=== PATIENT | male | born 1950 | race Caucasian/White ===

== ENCOUNTER 2020-07-09 10:46 | Day surgery (SDC) | payer OTHER, MEDICARE ==
[~2020-07-09] VITALS: Ht 182.9 cm; Wt 137.2 kg
[~2020-07-09 10:46] MED LIST: CARTIA XT120 MG PO; ELIQUIS5 MG PO; VALS80 PO
== END 2020-07-09 13:37 | disposition home or self-care (01) ==
LOC: ORSCSDS 10:46
PROVIDERS: Student in an Organized Health Care Education/Training Program
PROC: 0DBN8ZX Excision of Sigmoid Colon, Via Natural or Artificial Opening Endoscopic, Diagnostic (ICD-10-PCS; principal; 2020-07-09 12:00)
PROC: 0DBK8ZX Excision of Ascending Colon, Via Natural or Artificial Opening Endoscopic, Diagnostic (ICD-10-PCS; principal; 2020-07-09 12:00)
PROC: 0DBH8ZX Excision of Cecum, Via Natural or Artificial Opening Endoscopic, Diagnostic (ICD-10-PCS; principal; 2020-07-09 12:00)
DX: Z12.11 Encounter for screening for malignant neoplasm of colon (principal); Z12.2 Encounter for screening for malignant neoplasm of respiratory organs; Z12.0 Encounter for screening for malignant neoplasm of stomach; K63.5 Polyp of colon; K57.30 Diverticulosis of large intestine without perforation or abscess without bleeding; K64.8 Other hemorrhoids; I10 Essential (primary) hypertension; I48.91 Unspecified atrial fibrillation; Z79.01 Long term (current) use of anticoagulants; G47.33 Obstructive sleep apnea (adult) (pediatric); E66.01 Morbid (severe) obesity due to excess calories; Z68.41 Body mass index [BMI] 40.0-44.9, adult; Z79.899 Other long term (current) drug therapy
CPT/HCPCS: 88305; J2704; J7120

== ENCOUNTER → 2021-08-20 | Outpatient (CLI) | payer OTHER | END | disposition home or self-care (01) | LOC: LAB SHORT 11:33 | DX: L73.8 Other specified follicular disorders (principal); L57.8 Other skin changes due to chronic exposure to nonionizing radiation; B88.0 Other acariasis | CPT/HCPCS: 88305; 88312 ==

== ENCOUNTER → 2021-08-27 | Outpatient (CLI) | payer OTHER | END | disposition home or self-care (01) | LOC: LAB SHORT 12:25 | DX: L98.499 Non-pressure chronic ulcer of skin of other sites with unspecified severity (principal); L08.89 Other specified local infections of the skin and subcutaneous tissue | CPT/HCPCS: 88305 ==

== ENCOUNTER → 2021-12-17 | Outpatient (CLI) | payer MEDICARE, OTHER | END | disposition home or self-care (01) | LOC: PLD 11:09 → LAB SHORT 11:09 | DX: D48.5 Neoplasm of uncertain behavior of skin (principal) | CPT/HCPCS: 88305 ==

== ENCOUNTER → 2022-01-28 | Outpatient (CLI) | payer MEDICARE, OTHER | END | disposition home or self-care (01) | LOC: LAB SHORT 11:56 → PLD 11:56 | DX: C44.529 Squamous cell carcinoma of skin of other part of trunk (principal) | CPT/HCPCS: 88305 ==

== ENCOUNTER 2023-09-27 07:36 | Day surgery (SDC) | payer MEDICARE, OTHER ==
[~2023-09-27 07:36] MED LIST changes: +NS 250 ML IV SCH
[2023-09-27 07:55] VITALS: BP 128/63
[2023-09-27] MEDS ORDERED: ELIQUIS5 M2 PO (08:00)
[2023-09-27 08:13] VITALS: BP 115/55
[2023-09-27] MEDS ORDERED: MULVITA PO (08:27)
[2023-09-27] MEDS ORDERED: CARTIA XT120 M9 PO (08:27)
[2023-09-27] MEDS ORDERED: B COMPLEX FORM0.4 MG PO (08:28)
[2023-09-27] MEDS ORDERED: IRON BISGLYCINA28 MG PO (08:36)
[2023-09-27] MEDS ORDERED: C COMPLEX1000 M1 PO (08:36)
[2023-09-27] MEDS ORDERED: B12-FOLIC ACID1 EACH PO (08:36)
[2023-09-27] MEDS ORDERED: VITAMIN D31250 MC2 PO (08:36)
[2023-09-27] MEDS ORDERED: [UNRECOGNIZED DRUG - OTHER] PO (08:37)
[2023-09-27 09:55] VITALS: BP 109/72
[2023-09-27 10:52] VITALS: BP 119/83
[2023-09-27 11:22] VITALS: BP 117/77
== END 2023-09-27 11:20 | disposition home or self-care (01) ==
LOC: ATC 07:36
DX: D64.9 Anemia, unspecified (principal); D72.819 Decreased white blood cell count, unspecified; D69.6 Thrombocytopenia, unspecified; I48.91 Unspecified atrial fibrillation; Z88.0 Allergy status to penicillin
CPT/HCPCS: 36415; 36430; 86850; 86900; 86901; 86923; P9016

== ENCOUNTER → 2023-11-03 | Outpatient (CLI) | payer MEDICARE, OTHER ==
[~2023-11-03] MED LIST changes: +B COMPLEX FORM0.4 MG PO; +B12-FOLIC ACID1 EACH PO; +C COMPLEX1000 M1 PO; +CARTIA XT120 M9 PO; +ELIQUIS5 M2 PO; +IRON BISGLYCINA28 MG PO; +MULVITA PO; -NS 250 ML IV SCH; +VITAMIN D31250 MC2 PO; +[UNRECOGNIZED DRUG - OTHER] PO
== END | disposition home or self-care (01) ==
LOC: LAB 14:31 → LAB SHORT 14:31
DX: L57.0 Actinic keratosis (principal)
CPT/HCPCS: 88305

== ENCOUNTER 2023-11-14 03:10 | Day surgery (SDC) | payer MEDICARE, OTHER ==
[2023-11-11 14:45] LABS: Hematocrit 25.4 % (37.0-53.0); Hemoglobin 7.9 g/dL (13.5-17.5); Mean Corpuscular HGB 28.1 pg (26.0-34.0); Mean Corpuscular HGB Conc 31.1 g/dL (31.5-36.5); Mean Corpuscular Volume 90 fL (80-100); NRBC ABSOLUTE 0.11 K/mm3 (0.00-0.02); Platelet Count 189 K/mm3 (150-400); RDW Coefficient Variation 22.3 % (11.7-14.2); RDW Standard Deviation 70.2 fL (35.1-46.3); Red Blood Cell Count 2.81 M/mm3 (4.30-5.90); White Blood Cell Count 3.62 K/mm3 (4.00-11.30)
[2023-11-11 16:24] LABS: BAND PERCENT MAN 11 % (0-8); BASOPHILS PERCENT MAN 0 % (0-2); EOSINOPHILS ABSOLUTE MAN 0.07 K/mm3 (0.00-0.68); EOSINOPHILS PERCENT MAN 2 % (0-6); LYMPHOCYTES % ATYPICAL MANUAL 2 % (0-0); LYMPHOCYTES ABSOLUTE MAN 1.66 K/mm3 (0.84-5.20); LYMPHOCYTES PERCENT MAN 44 % (21-46); METAMYELOCYTE ABSOLUTE MAN 0.07 K/mm3 (0.00-0.00); METAMYELOCYTE PERCENT MAN 2 % (0-0); MONOCYTES PERCENT MAN 3 % (4-13); MYELOCYTE ABSOLUTE MAN 0.14 K/mm3 (0.00-0.00); MYELOCYTE PERCENT MAN 4 % (0-0); NEUTROPHILS ABSOLUTE MAN 1.55 K/mm3 (1.96-9.15); SEG NEUTROPHILS PERCENT MAN 32 % (41-73); TOTAL CELLS COUNTED 100
[2023-11-14] MEDS ORDERED: NS 250 ML IV SCH (07:00)
--- NOTE | 2023-11-14 09:24 | NUR ---
PER BLOOD BANK THE BLOOD WAS TYPED AND CROSSED ON ACCT [id number] WHICH IS DATED FOR 11/15/23. SPOKE WITH ADMITTING WHO WILL CHANGED THE DATE ON THE ACCT ENDING [facility] 1869 TO TODAY. CHARTING ON THIS CURRENT ACCOUT WAS UNDONE AND WILL BE RE CHARTED ON THE ACCT ENDING 1869.
== END 2023-11-14 22:35 | disposition home or self-care (01) ==
LOC: ATC 03:10
PROVIDERS: Internal Medicine Hematology & Oncology
DX: D64.9 Anemia, unspecified (principal); D72.819 Decreased white blood cell count, unspecified; D69.6 Thrombocytopenia, unspecified; D47.1 Chronic myeloproliferative disease; F17.200 Nicotine dependence, unspecified, uncomplicated; Z88.0 Allergy status to penicillin
CPT/HCPCS: 36415; 36430; 85025; 86850; 86900; 86901; 86923; J7050; P9016

== ENCOUNTER 2025-04-03 13:43 | Inpatient (IN) | payer OTHER, MEDICARE ==
[~2025-04-03] VITALS: Ht 182.9 cm; Wt 114.3 kg
[2025-04-03 14:57] LABS: Hematocrit 23.3 % (37.0-53.0); Hemoglobin 7.5 g/dL (13.5-17.5); Mean Corpuscular HGB Conc 32.2 g/dL (31.5-36.5); Mean Corpuscular Volume 92 fL (80-100); NRBC ABSOLUTE 1.22 K/mm3 (0.00-0.02); NRBC Auto 8.7 /100 WBC (0.0-0.2); Platelet Count 123 K/mm3 (150-400); RDW Coefficient Variation 21.8 % (11.7-14.2); RDW Standard Deviation 70.5 fL (35.1-46.3)
[2025-04-03 15:08] LABS: Alanine Aminotransfer (ALT/SGP 17.0 U/L (12-78); Albumin, Blood 3.7 g/dL (3.4-5.0); Albumin/Globulin Ratio 1.2 (0.8-1.8); Anion Gap 13.0 mmol/L (3-11); Aspartate Aminotrans (AST/SGOT 25.0 U/L (12-37); Bilirubin, Total 1.7 mg/dL (0.1-1.0); Blood Urea Nitrogen 16.0 mg/dL (8-24); CO2, Blood 23.0 mmol/L (21-32); Calcium, Blood 8.4 mg/dL (8.5-10.1); Chloride, Blood 104.0 mmol/L (98-108); Creatinine, Blood 1.14 mg/dL (0.60-1.20); Globulin, Blood 3.1 g/dL (2.2-4.0); Glucose, Blood 91.0 mg/dL (70-99); Potassium, Blood 4.1 mmol/L (3.5-5.5); Sodium, Blood 136.0 mmol/L (136-145); Total Protein, Blood 6.8 g/dL (6.4-8.2)
[2025-04-03 15:35] LABS: BAND PERCENT MAN 6 % (0-8); BASOPHILS ABSOLUTE MAN 0.00 K/mm3 (0.00-0.23); BASOPHILS PERCENT MAN 0 % (0-2); EOSINOPHILS ABSOLUTE MAN 0.13 K/mm3 (0.00-0.68); EOSINOPHILS PERCENT MAN 1 % (0-6); LYMPHOCYTES ABSOLUTE MAN 0.97 K/mm3 (0.84-5.20); LYMPHOCYTES PERCENT MAN 7 % (21-46); METAMYELOCYTE ABSOLUTE MAN 0.27 K/mm3 (0.00-0.00); METAMYELOCYTE PERCENT MAN 2 % (0-0); MONOCYTES ABSOLUTE MAN 0.00 K/mm3 (0.16-1.47); MONOCYTES PERCENT MAN 0 % (4-13); NEUTROPHILS ABSOLUTE MAN 12.58 K/mm3 (1.96-9.15); SEG NEUTROPHILS PERCENT MAN 84 % (41-73)
[2025-04-03 15:45] LABS: CORONAVIRUS COVID-19 AG Negative (NEGATIVE)
[2025-04-03] MEDS ORDERED: NS 1,000 ML IV SCH (17:35)
[2025-04-03 17:39] LABS: Source, Urine Voided
[2025-04-03 17:45] LABS: Bilirubin, Urine Neg (Neg); Color, Urine Yellow (P-Yellow); Glucose Qualitative, Urine Neg (Neg); Ketones, Urine Neg (Neg); Leukocyte Esterase, Urine Neg (Neg); Protein, Urine 2+ (Neg); Specific Gravity, Urine 1.020 (1.003-1.022); Urobilinogen, Urine 1+ (Normal)
[2025-04-03 18:01] LABS: White Blood Cells, Urine 0-2 /hpf (0-5)
[2025-04-03] MEDS ORDERED: Diltiazem HCl 5 MG / ML 5ML Vial IV ONE ×2 (18:15→19:25)
[2025-04-03] MEDS ORDERED: Guaifenesin/Dextromethorphan Syrup 5 ML UDC PO ONE ×2 (18:15→20:30)
[2025-04-03] MEDS ORDERED: Ondansetron HCl 2 MG / ML 2ML Vial IV PRN (20:30)
[2025-04-03] MEDS ORDERED: Guaifenesin/Dextromethorphan Syrup 5 ML UDC PO PRN (20:30)
[2025-04-03] MEDS ORDERED: [UNRECOGNIZED DRUG - OTHER] PO (20:53)
[2025-04-03] MEDS ORDERED: FLUT.05NI (20:54)
[2025-04-03] MEDS ORDERED: Ketorolac Tromethamine 15mg Vial IV ONE (20:55)
[2025-04-03] MEDS ORDERED: CefTRIAXone Sodium 1,000 MG in NS 100 ML IV SCH (21:00)
[2025-04-03] MEDS ORDERED: [UNRECOGNIZED DRUG - OTHER] PO SCH (21:00)
[2025-04-03 21:04] LABS: Magnesium, Blood 1.5 mg/dL (1.6-2.4); Thyroid Stimulating Hormone 1.61 uIU/mL (0.360-4.800)
[2025-04-03 21:23] LABS: pH Blood Venous 7.46 (7.34-7.37)
[2025-04-03 21:32] LABS: SARS-Cov-2 (COVID-19), BioFire Not Detected (NOT DETECT)
[2025-04-03 21:33] LABS: Influenza A/2009-H1 Not Detected (NOT DETECT)
[2025-04-03 21:41] VITALS: BP 89/66
[2025-04-03 22:01] VITALS: BP 87/48
[2025-04-03 22:15] VITALS: BP 83/52
[2025-04-03] MEDS ORDERED: Mag Sulfate 1 GM/D5% 100ML 100 ML IV ONE (22:40)
[2025-04-03 22:45] VITALS: BP 101/58
[2025-04-03 23:21] VITALS: BP 108/73
[2025-04-04] VITALS (46 sets, daily range): BP systolic 71–128; BP diastolic 44–76
[2025-04-04] MEDS ORDERED: NS 500 ML IV ONE (02:50)
[2025-04-04 03:11] LABS: Hematocrit 20.6 % (37.0-53.0); Hemoglobin 6.4 g/dL (13.5-17.5); Mean Corpuscular HGB Conc 31.1 g/dL (31.5-36.5); Mean Corpuscular Volume 95 fL (80-100); NRBC ABSOLUTE 1.33 K/mm3 (0.00-0.02); NRBC Auto 6.5 /100 WBC (0.0-0.2); Platelet Count 98 K/mm3 (150-400); RDW Coefficient Variation 22.1 % (11.7-14.2); RDW Standard Deviation 73.7 fL (35.1-46.3)
[2025-04-04 03:28] LABS: Alanine Aminotransfer (ALT/SGP 14.0 U/L (12-78); Albumin, Blood 2.8 g/dL (3.4-5.0); Albumin/Globulin Ratio 1.1 (0.8-1.8); Anion Gap 16.0 mmol/L (3-11); Aspartate Aminotrans (AST/SGOT 35.0 U/L (12-37); Bilirubin, Total 2.2 mg/dL (0.1-1.0); Blood Urea Nitrogen 23.0 mg/dL (8-24); CO2, Blood 19.0 mmol/L (21-32); Calcium, Blood 7.6 mg/dL (8.5-10.1); Chloride, Blood 105.0 mmol/L (98-108); Creatinine, Blood 1.67 mg/dL (0.60-1.20); Globulin, Blood 2.6 g/dL (2.2-4.0); Glucose, Blood 85.0 mg/dL (70-99); Potassium, Blood 3.6 mmol/L (3.5-5.5); Sodium, Blood 136.0 mmol/L (136-145); Total Protein, Blood 5.4 g/dL (6.4-8.2)
[2025-04-04] MEDS ORDERED: Vancomycin (Pharmacy Consult) IV SCH (03:30)
[2025-04-04] MEDS ORDERED: Cefepime HCl 1,000 MG in NS 100 ML IV SCH (03:36)
--- NOTE | 2025-04-04 03:43 | NUR ---
PATIENT UPDATE/SHIFT SUMMARY PT TRANSFERRED TO PCU FROM ER AT 2130. AT TIME OF TRANSFER PT HAD CARDIZEM GTT INFUSING AT 15MG/HR. SBP NOTED TO BE 70-80S. GTT STOPPED. NOTIFIED AND AWARE OF LOW BP. PT DENIED SOB/CP/DIZZINESS. PT APPEARS LETHARGIC, STATES THIS IS HIS BASELINE AND THAT HE IS USUALLY FATIGUED. AFIB WITH HR 100-120S. ON 5L VIA NC WITH SPO2 >92%. AFEBRILE AT TIME OF TRANSFER. MALE WICKING SYSTEM IN PLACE. 0000: BP'S REMAINED LABILE WITH SBP 80-110'S. MAP 58-70'S. MD GAXIOLA MADE AWARE, WITH NO NEW ORDERS. TEMP MAX OF 100.8; MEDICATED PER EMAR FOR FEVER. O2 DEMANDS REMAINED UNCHANGED. CLEAR LS IN UPPERS, DIM IN BASES. NEURO UNCHANGED. AROUND 0200 PT NOTED TO HAVE MORE EPISODES OF DESATTING ON MONITOR. INCREASED O2 TO 6L VIA NC WITH NO IMPROVEMENT. PT SWITCHED TO HIFLOW NC AT 15L WITH SPO2 92%. BP LOWER THAN PREVIOUS WITH SBP 70-80'S. MAP 50'S. MD GAXIOLA NOTIFIED. ORDER FOR MIDODRINE AND 500MLS NS BOLUS. GIVEN PER EMAR. APPROXIMATELY 30 MINUTES AFTER MIDODRINE/NS GIVEN SBP 70'S. CONTINUED TO NEED 15L VIA NC WITH SPO2 90-92%. BLADDER SCAN SHOWING 200MLS OF URINE. MD GARCIA NOTIFIED OF PATIENT CONDITION WITH ORDER TO TRANSFER TO ICU. THIS RN GAVE BEDSIDE REPORT TO ZORAIDA KANG IN ICU. REMAINED AT BEDSIDE T/O THIS SHIFT. WAS TAKEN TO ICU WAITING ROOM WHILE PT WAS GETTING SETTLED IN NEW ICU ROOM.
[2025-04-04 03:48] LABS: BAND PERCENT MAN 15 % (0-8); BASOPHILS ABSOLUTE MAN 0.20 K/mm3 (0.00-0.23); BASOPHILS PERCENT MAN 1 % (0-2); EOSINOPHILS ABSOLUTE MAN 0.00 K/mm3 (0.00-0.68); EOSINOPHILS PERCENT MAN 0 % (0-6); LYMPHOCYTES % ATYPICAL MANUAL 1 % (0-0); LYMPHOCYTES ABSOLUTE MAN 1.63 K/mm3 (0.84-5.20); LYMPHOCYTES PERCENT MAN 7 % (21-46); METAMYELOCYTE ABSOLUTE MAN 0.40 K/mm3 (0.00-0.00); METAMYELOCYTE PERCENT MAN 2 % (0-0); MONOCYTES ABSOLUTE MAN 0.40 K/mm3 (0.16-1.47); MONOCYTES PERCENT MAN 2 % (4-13); MYELOCYTE ABSOLUTE MAN 0.40 K/mm3 (0.00-0.00); MYELOCYTE PERCENT MAN 2 % (0-0); NEUTROPHILS ABSOLUTE MAN 17.37 K/mm3 (1.96-9.15); SEG NEUTROPHILS PERCENT MAN 70 % (41-73)
[2025-04-04] MEDS ORDERED: Vancomycin HCL 2,500 MG in NS 500 ML IV ONE (03:55)
[2025-04-04] MEDS ORDERED: Albuterol 2.5 MG/3 ML VIAL INH PRN (04:00)
--- NOTE | 2025-04-04 04:00 | NUR ---
ASSUMPTION OF CARE: PT TRANSFERRED FROM PCU TO ICU 3, ACCOMPANIED BY TEMI AND LURDES RN. PT ASSISTED OVER TO ICU BED. PT DROWSY, AROUSABLE TO VOICE, ORIENTED X4. PT VISUALLY PALE. NO SKIN ISSUES NOTED BY TERESA RN OR OBDULIA RN, WHO ASSISTED ON ARRIVAL. PT AFEBRILE. ABLE TO COMMUNICATE NEEDS AND FOLLOW COMMANDS. DENIES PAIN. PT ON 15L O2 VIA HUMIDIFIED NC ON ARRIVAL. O2 TITRATED DOWN ALLOWED, PER DR. GARCIA ORDERS, SATS>95%. LUNGS COARSE, DIMINISHED AT BASES. SBP LOW W/MAPS <65. ORDERS OBTAINED FOR LEVOPHED AND ONE UNIT BLOOD (PT HGB 6.4), AIM TO MAINTAIN LEVOPHED AT LOW DOSE. HR IN AFIB 90S-100S. BT HYPOACTIVE X4. ABD SOFT TO PALPATION. DR GARCIA AT BEDSIDE SHORTLY AFTER PT ARRIVED. DR GARCIA OBTAINED BLOOD CONSENT FROM PT AND DISCUSSED PLAN OF CARE W/BOTH PARTIES. CT PE STUDY ORDERED AND TO BE OBTAINED ONCE PT SBP STABILIZES. THIS RN TO CONTINUE TO MONITOR AND PROVIDE INTERVENTIONS.
[2025-04-04 04:59] LABS: SARS-Cov-2 (COVID-19) PCR, MMC NEGATIVE (NEGATIVE)
[2025-04-04] MEDS ORDERED: NS 250 ML IV PRN (05:10)
[2025-04-04] MEDS ORDERED: Albumin (Human) 25gm/100ml 100 ML IV ONE (06:50)
--- NOTE | 2025-04-04 06:59 | NUR ---
SHIFT SUMMARY: PT REMAINS A&OX4, ABLE TO FOLLOW COMMANDS AND MAKE NEEDS KNOWN. AT BEDSIDE. PT NOW ON 9L O2 VIA HUMIDIFIED NC. TOLERATING WELL. SATS>95%. BREATING EVEN AND UNLABORED. LEVOPHED GTT TITRATED TO MAINTAIN MAP>65. SEE FLOW SHEET FOR TITRATIONS. HR REMAINS 90S-100S, AFIB. PT DENIES NAUSEA OR PAIN OF ANY KIND. PT HAS NOT VOIDED WHILE IN ICU AND SPOUSE REPORTS IT HAS BEEN SEVERAL HOURS, PT DENIES FEELING THE NEED TO VOID OR PAIN ON PALPATION. INFORMATION PASSED ON TO DAY SHIFT RN. PLAN FOR BLADDER SCAN. REPORT GIVEN TO DAY SHIFT RN.
[2025-04-04 09:13] LABS: Hematocrit 23.8 % (37.0-53.0); Hemoglobin 7.5 g/dL (13.5-17.5)
--- NOTE | 2025-04-04 10:48 | NUR ---
"SPiritual Care Visit | Pt./Family Request Pt. is resting in bed. Spouse is at bedside and welcomes my visit. Pt. opens his eyes occasionally but is basically somnolent for the entire visit. Facilitate a life review with the spouse. Considered matters of rj and belief. Spouse shared of the importance of their mandaeism, and of their early years in [place]. Listen with interest and empathy, and a measure of rapport is established with the spouse. Prayed at bedside for the Pt. 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
[2025-04-04 12:08] LABS: Bilirubin, Direct 0.7 mg/dL (0.0-0.3); Bilirubin, Indirect 1.4 mg/dL (0.1-0.7); Bilirubin, Total 2.1 mg/dL (0.1-1.0)
--- NOTE | 2025-04-04 14:49 | NUR ---
STRAIGHT CATH 600 BLADDER SCANNED PATIENT HE HAD OVER 600 ON THE SCANNER SO STRAIGHT CATHED WITH A COUDE CATH AND PATIENT HAD 600MLS MARIBEL BLOOD TINGED URINE
[2025-04-04 18:17] LABS: Prostate Specific Antigen 38.700 ng/mL (0.000-4.000)
--- NOTE | 2025-04-04 19:32 | NUR ---
SHIFT SUMMARY PATIENT AOX4 ABLE TO MAKE NEEDS KNOWN DENIES CP DOES HAVE SOB WHEN LAYING FLAT. BLOOD PRESSURE IMPROVED LEVOPHED TURNED OFF AT 1334. HR INCREASING DILT GTT RESTARTED AT 1518. PATIENT WAS UNABLE TO VOID BLADDER SCANNED >400 STRAIGHT CATHED WITH COUDE. BY END OF SHIFT PATIENT WAS ABLE TO VOID IN PUREWICK URINE BLOODTINGED HOSPITALIST AWARE. PATIENT HAD 3 BM TODAY. PATIENT ONLY WAMTED TO EAT FRUIT TODAY.
[2025-04-05] VITALS (55 sets, daily range): BP systolic 97–151; BP diastolic 52–128
[2025-04-05] MEDS ORDERED: LORazepam 2 MG/ML 1ML Injection IV ONE (02:20)
[2025-04-05 05:18] LABS: Hematocrit 25.2 % (37.0-53.0); Hemoglobin 7.9 g/dL (13.5-17.5); Mean Corpuscular HGB Conc 31.3 g/dL (31.5-36.5); Mean Corpuscular Volume 93 fL (80-100); NRBC ABSOLUTE 0.17 K/mm3 (0.00-0.02); NRBC Auto 0.5 /100 WBC (0.0-0.2); Platelet Count 65 K/mm3 (150-400); RDW Coefficient Variation 22.3 % (11.7-14.2); RDW Standard Deviation 74.6 fL (35.1-46.3)
[2025-04-05 05:50] LABS: BAND PERCENT MAN 16 % (0-8); BASOPHILS ABSOLUTE MAN 0.00 K/mm3 (0.00-0.23); BASOPHILS PERCENT MAN 0 % (0-2); EOSINOPHILS ABSOLUTE MAN 0.00 K/mm3 (0.00-0.68); EOSINOPHILS PERCENT MAN 0 % (0-6); METAMYELOCYTE ABSOLUTE MAN 1.85 K/mm3 (0.00-0.00); METAMYELOCYTE PERCENT MAN 5 % (0-0); MONOCYTES ABSOLUTE MAN 0.00 K/mm3 (0.16-1.47); MONOCYTES PERCENT MAN 0 % (4-13); MYELOCYTE ABSOLUTE MAN 0.37 K/mm3 (0.00-0.00); MYELOCYTE PERCENT MAN 1 % (0-0); NEUTROPHILS ABSOLUTE MAN 34.53 K/mm3 (1.96-9.15); PLASMA CELL ABSOLUTE MAN 0.37 K/mm3 (0.00-0.00); PLASMA CELLS PERCENT MAN 1 % (0-0); SEG NEUTROPHILS PERCENT MAN 77 % (41-73)
--- NOTE | 2025-04-05 06:14 | NUR ---
NO ACUTE EVENTS OVERNIGHT. PT ALERT AND ORIENTED X 4. FOLLOWS COMMANDS. CALLS APPROPRIATELY. HEART RHYTHM AFIB WITH HEART RATE 90-110s ON CARDIZEM DRIP AT 10MG/HR, TITRATED DOWN FROM 15MG/HR. PT'S SPO2 >92% ON 5L VIA NASAL CANNULA. PT HAD COMPLAINTS OF COUGH AND ANXIETY. CUSTOMER SUPPORT PROFESSIONAL PROVIDER NOTIFIED, DR. GARCIA. NEW ORDERS GIVEN (SEE SEP). BILATERAL SCDs ON. PT REPOSITIONED EVERY TWO HOURS. BED LOCKED AND IN LOWEST POSITION. CALL LIGHT WITHIN REACH.
[2025-04-05 06:15] LABS: Alanine Aminotransfer (ALT/SGP 22 U/L (12-78); Albumin, Blood 3.1 g/dL (3.4-5.0); Albumin/Globulin Ratio 1.0 (0.8-1.8); Anion Gap 12 mmol/L (3-11); Aspartate Aminotrans (AST/SGOT 45 U/L (12-37); Bilirubin, Total 1.8 mg/dL (0.1-1.0); Blood Urea Nitrogen 29 mg/dL (8-24); CO2, Blood 20 mmol/L (21-32); Calcium, Blood 8.1 mg/dL (8.5-10.1); Chloride, Blood 106 mmol/L (98-108); Creatinine, Blood 1.44 mg/dL (0.60-1.20); Globulin, Blood 3.2 g/dL (2.2-4.0); Glucose, Blood 91 mg/dL (70-99); Potassium, Blood 4.0 mmol/L (3.5-5.5); Sodium, Blood 134 mmol/L (136-145); Total Protein, Blood 6.3 g/dL (6.4-8.2); Vancomycin, Random 9.6 ug/mL
--- NOTE | 2025-04-05 09:10 | NUR ---
ASSUMPTION OF CARE ASSUMED CARE OF PATIENT AT [facility] [place] [address]700. PT RESTING IN BED, ALERT AND ORIENTED X4. PT ANSWERS QUESTIONS APPROPRIATELY, FOLLOWS DIRECTION WHEN PROMPTED AND IS ABLE TO MAKE HIS NEEDS KNOWN. PT MOVES EXTREMITIES EQULLY BILATERALLY. PT UP IN RECLINER THIS AM, CANE AND NURSE ASSIST, TOLERATED WELL WITH MODERATE PAIN IN HIS KNEE WHICH HE BELIEVES IS FROM HIS PREVIOUS FALL AT HOME. HR 90-120'S AFIB, DILTIAZEM DRIP INFUSING AT 10MG/HR, SEE FLOWSHEET FOR TITRATIONS. PT DENIES CP/PRESSURE, MAP >65. PT ON 4-5LPM VIA NC, OXYGEN SATURATION >92%. ABDOMEN SOFT, BOWEL TONES ACTIVE THROUGHOUT. MALE PUREWICK IN PLACE. PIV IN PLACE TO RFA AND LFA. PT SITTING UP IN RECLINER, CALL LIGHT WITHIN REACH, CARE CONTINUES.
[2025-04-05] MEDS ORDERED: NS 1,000 ML IV ONE (12:00)
--- NOTE | 2025-04-05 17:54 | NUR ---
SHIFT SUMMARY PT CONTINUES TO REST IN BED, SLEEPING BUT AROUSABLE. PT ANSWERS QUESTIONS APPROPRIATLEY, FOLLOWS DIRECTION WHEN PROMPTED AND IS ABLE TO MAKE HIS NEEDS KNOWN. PT MOVES EXTREMITIES EQUALLY BILATERALLY. HR 80-120'S THIS SHIFT, DILTIAZEM DRIP PLACED ON SB THIS SHIFT. MAP >65. PT ON 2-5 LPM VIA NC THIS SHIFT, PT COMPLAINING OF FEELING SHORT OF BREATH AFTER BEING ON 2LPM VIA NC, TITRATED OXYGEN BACK UP TO 5LPM VIA NC WITH GOOD EFFECT, OXYGEN SATURATION REMAINED >92%. PT WITH PRODUCTIVE COUGH THIS SHIFT, MEDICATED PER EMAR. ABDOMEN SOFT, BOWEL TONES ACTIVE THROUGHOUT. PUREWICK IN PLACE WITH MARIBEL OUTPUT. PIV IN PLACE TO RFA AND LFA, NS INFUSING AT 75MLS/HR. BED IN LOWEST POSITION, CALL LIGHT WITHIN REACH, CARE CONTINUES.
[2025-04-05] MEDS ORDERED: Diltiazem HCl 180 MG Cap.CD PO SCH (20:00)
[2025-04-05] MEDS ORDERED: Lactobacil 2-S.Thermo-Bifido 1 1 Cap PO SCH (21:00)
[2025-04-06] VITALS (44 sets, daily range): BP systolic 85–146; BP diastolic 51–88
[2025-04-06 05:33] LABS: BASOPHILS ABSOLUTE AUTO 0.18 K/mm3 (0.00-0.23); BASOPHILS PERCENT AUTO 0 % (0-2); EOSINOPHILS ABSOLUTE AUTO 0.17 K/mm3 (0.00-0.68); EOSINOPHILS PERCENT AUTO 0 % (0-6); Hematocrit 26.2 % (37.0-53.0); Hemoglobin 8.0 g/dL (13.5-17.5); Mean Corpuscular HGB Conc 30.5 g/dL (31.5-36.5); Mean Corpuscular Volume 94 fL (80-100); NRBC ABSOLUTE 0.29 K/mm3 (0.00-0.02); NRBC Auto 0.7 /100 WBC (0.0-0.2); Platelet Count 61 K/mm3 (150-400); RDW Coefficient Variation 21.9 % (11.7-14.2); RDW Standard Deviation 74.5 fL (35.1-46.3)
[2025-04-06 05:36] LABS: IMMATURE GRAN ABSOLUTE AUTO 2.85 K/mm3 (0.00-0.10); IMMATURE GRAN PERCENT AUTO 7 % (0-1); LYMPHOCYTES ABSOLUTE AUTO 1.75 K/mm3 (0.84-5.20); LYMPHOCYTES PERCENT AUTO 4 % (21-46); MONOCYTES ABSOLUTE AUTO 2.35 K/mm3 (0.16-1.47); MONOCYTES PERCENT AUTO 6 % (4-13); NEUTROPHILS ABSOLUTE AUTO 33.51 K/mm3 (1.96-9.15); NEUTROPHILS PERCENT AUTO 82 % (41-73)
--- NOTE | 2025-04-06 05:50 | NUR ---
SHIFT SUMMARY PT A/O X 4, FOLLOWS COMMANDS AND ANSWERS APPROP. SEVERE GENERALIZED WEAKNESS. CON'T IN AFIB 90'S TO 110'S, OCCAS UP TO 120'S, BUT NOT SUSTAINED. BP STABLE. REQUIRING 6 L NC T/O NIGHT TO KEEP O2SAT>92%. MOIST, BUT UNPRODUCTIVE COUGH CON'T, COUGH SYRUP GIVEN PRN. AFEBRILE T/O NIGHT. WILL UPDATE DAY RN WITH OUTSTANDING ISSUES AND PROBLEMS TO DATE.
[2025-04-06 05:53] LABS: BAND PERCENT MAN 9 % (0-8); BASOPHILS ABSOLUTE MAN 0.00 K/mm3 (0.00-0.23); BASOPHILS PERCENT MAN 0 % (0-2); EOSINOPHILS ABSOLUTE MAN 0.00 K/mm3 (0.00-0.68); EOSINOPHILS PERCENT MAN 0 % (0-6); LYMPHOCYTES ABSOLUTE MAN 1.63 K/mm3 (0.84-5.20); LYMPHOCYTES PERCENT MAN 4 % (21-46); METAMYELOCYTE ABSOLUTE MAN 0.81 K/mm3 (0.00-0.00); METAMYELOCYTE PERCENT MAN 2 % (0-0); MONOCYTES ABSOLUTE MAN 1.22 K/mm3 (0.16-1.47); MONOCYTES PERCENT MAN 3 % (4-13); NEUTROPHILS ABSOLUTE MAN 37.13 K/mm3 (1.96-9.15); SEG NEUTROPHILS PERCENT MAN 82 % (41-73)
[2025-04-06 06:01] LABS: Anion Gap 10 mmol/L (3-11); Blood Urea Nitrogen 37 mg/dL (8-24); CO2, Blood 23 mmol/L (21-32); Calcium, Blood 8.3 mg/dL (8.5-10.1); Chloride, Blood 103 mmol/L (98-108); Creatinine, Blood 1.10 mg/dL (0.60-1.20); Glucose, Blood 107 mg/dL (70-99); Potassium, Blood 4.3 mmol/L (3.5-5.5); Sodium, Blood 132 mmol/L (136-145); Vancomycin, Trough 11.2 ug/mL (5.0-10.0)
--- NOTE | 2025-04-06 09:19 | NUR ---
AM NOTE... ASSUMED CARE OF PT AT 0700, PT IS A&O TO SELF AND HIS WHICH IS A CHANGE PER NOC SHIFT RN REPORT. PT IS LETHARGIC AND UNABLE TO KEEP HIS EYES OPEN, HE IS CONFUSED AND ATTEMPTING TO CLIMB OUT OF BED AT TIMES, NOT FOLLOWING MOST COMMANDS. PT WAS ON 6L NC AT 0700 THIS WAS INCREASED AT 0720 TO 8L NC TO KEEP O2 SATS>90%, L/S COARSE AND DIM IN THE UPPER/MID LOBES, DIM IN THE BILATERAL LOWER LOBES. PT IS IN AFIB IN THE 100'S BP IS STABLE AT 123/68. PT HAS 2+ EDEMA TO HIS BLE. BT ARE PRESENT AND HYPOACTIVE, ABD IS NONTENDER TO PALPATION. PT HAS A MALE PURWICK IN PLACE. PT HAD A SOFT/LOOSE, MED BM THIS AM. PT'S TEMP IS 97.9. THE PT'S PO MEDS HELD THIS AM D/T LETHARGY AND RISK FOR ASPIRATION.
[2025-04-06] MEDS ORDERED: Cefepime HCl 1,000 MG in NS 100 ML IV ONE (11:25)
[2025-04-06 11:27] LABS: pH Blood Arterial 7.21 (7.35-7.45)
[2025-04-06 11:35] LABS: pH Blood Arterial 7.23 (7.35-7.45)
--- NOTE | 2025-04-06 11:54 | NUR ---
PT UPDATE.... PT CONTINUES TO HAVE INCREASED LETHARGY AND IS HARDER TO WAKE UP. THE PT'S O2 INCREASED FROM 8L NC TO 15LNC, THE PT WAS PLACED ON AN OXYMASK WHICH WAS THEN TITRATED DOWN TO 12L ON THE OXYMASK WITH O2 SATS 90-94%. PROVIDER AND RT WERE NOTIFIED, NEW ORDERS FOR NT SUCTION, ABG AND NPO WERE GIVEN. ONCE THE ABG WAS OBTAINED THE pH WAS NOTED TO BE 7.23 THE RT PLACED THE PT ON BIPAP AT 1140, 16/8 AND 40%, PT IS TOLERATING THE BIPAP SO FAR, O2 SATS ARE 94%.
[2025-04-06 12:14] LABS: Prothrombin Time Results 13.4 Sec (9.7-11.5)
[2025-04-06] MEDS ORDERED: Heparin Sodium,Porcine/0.5 NS 500 ML IV SCH (12:25)
[2025-04-06] MEDS ORDERED: Pantoprazole Sodium 40 MG Injection IV SCH (15:00)
[2025-04-06] MEDS ORDERED: Lidocaine 2% Jelly Uro-Jet UR ONE (15:05)
[2025-04-06 15:17] LABS: pH Blood Venous 7.39 (7.34-7.37)
[2025-04-06 15:53] LABS: Alanine Aminotransfer (ALT/SGP 29.0 U/L (12-78); Albumin, Blood 2.8 g/dL (3.4-5.0); Albumin/Globulin Ratio 0.9 (0.8-1.8); Anion Gap 8.0 mmol/L (3-11); Aspartate Aminotrans (AST/SGOT 32.0 U/L (12-37); Bilirubin, Total 1.5 mg/dL (0.1-1.0); Blood Urea Nitrogen 41.0 mg/dL (8-24); CO2, Blood 25.0 mmol/L (21-32); Calcium, Blood 8.3 mg/dL (8.5-10.1); Chloride, Blood 105.0 mmol/L (98-108); Creatinine, Blood 1.16 mg/dL (0.60-1.20); Globulin, Blood 3.2 g/dL (2.2-4.0); Glucose, Blood 92.0 mg/dL (70-99); Potassium, Blood 4.3 mmol/L (3.5-5.5); Sodium, Blood 134.0 mmol/L (136-145); Total Protein, Blood 6.0 g/dL (6.4-8.2)
[2025-04-06] MEDS ORDERED: Cefepime HCl 2,000 MG in NS 100 ML IV SCH (16:00)
--- NOTE | 2025-04-06 18:15 | NUR ---
SHIFT SUMMARY.... PT WAS TAKEN OFF OF BIPAP AROUND 1600 FOR ORAL CARE AND PT SHOWED INCREASED MENTATION. PT WAS PLACED ON OXYMASK AT 10L THEN CHANGED TO NC AT 7L AND IS CURRENTLY ON 5L NC WITH O2 SATS >90%. PT WAS ALERT AND ABLE TO ANSWER ALL ORIENTATION QUESTIONS BUT HAS MOMENTS OF CONFUSION/DELIRIUM. THE PT CONTINUES TO BE ALERT AND TALKATIVE WITH FAMILY AT THE BEDSIDE. THE PT CONTINUES TO BE IN AFIB IN THE 90'S. BP STABLE WITH MAPS>65. TOTH IS PATENT AND DRAINING YELLOW/PINKISH URINE TO GRAVITY. TEMP 97.3. HEPARIN DRIP WAS STARTED D/T THE PT'S NPO STATUS. PLANS FOR SPEECH TO SEE THE PT TOMORROW IF HE IS ALERT AND ABLE TO FOLLOW COMMANDS.
[2025-04-06 18:20] LABS: Vancomycin, Trough 19.4 ug/mL (5.0-10.0)
[2025-04-06] MEDS ORDERED: Heparin Sodium 5000 Units/ML 1ML MDV IV ONE (21:10)
[2025-04-07] VITALS (41 sets, daily range): BP systolic 94–142; BP diastolic 59–88
[2025-04-07 03:09] LABS: Hematocrit 26.0 % (37.0-53.0); Hemoglobin 7.9 g/dL (13.5-17.5); Mean Corpuscular HGB Conc 30.4 g/dL (31.5-36.5); Mean Corpuscular Volume 96 fL (80-100); NRBC ABSOLUTE 0.31 K/mm3 (0.00-0.02); NRBC Auto 1.0 /100 WBC (0.0-0.2); RDW Coefficient Variation 21.6 % (11.7-14.2); RDW Standard Deviation 74.9 fL (35.1-46.3)
[2025-04-07 03:20] LABS: Platelet Count 46 K/mm3 (150-400)
[2025-04-07 03:29] LABS: Alanine Aminotransfer (ALT/SGP 28.0 U/L (12-78); Albumin, Blood 2.9 g/dL (3.4-5.0); Albumin/Globulin Ratio 0.9 (0.8-1.8); Anion Gap 8.0 mmol/L (3-11); Aspartate Aminotrans (AST/SGOT 29.0 U/L (12-37); Bilirubin, Total 1.5 mg/dL (0.1-1.0); Blood Urea Nitrogen 43.0 mg/dL (8-24); CO2, Blood 25.0 mmol/L (21-32); Calcium, Blood 8.4 mg/dL (8.5-10.1); Chloride, Blood 107.0 mmol/L (98-108); Creatinine, Blood 1.13 mg/dL (0.60-1.20); Globulin, Blood 3.2 g/dL (2.2-4.0); Glucose, Blood 97.0 mg/dL (70-99); Potassium, Blood 4.3 mmol/L (3.5-5.5); Sodium, Blood 136.0 mmol/L (136-145); Total Protein, Blood 6.1 g/dL (6.4-8.2)
[2025-04-07 04:04] LABS: BAND PERCENT MAN 14 % (0-8); BASOPHILS ABSOLUTE MAN 0.00 K/mm3 (0.00-0.23); BASOPHILS PERCENT MAN 0 % (0-2); EOSINOPHILS ABSOLUTE MAN 0.00 K/mm3 (0.00-0.68); EOSINOPHILS PERCENT MAN 0 % (0-6); LYMPHOCYTES ABSOLUTE MAN 1.55 K/mm3 (0.84-5.20); LYMPHOCYTES PERCENT MAN 5 % (21-46); METAMYELOCYTE ABSOLUTE MAN 0.93 K/mm3 (0.00-0.00); METAMYELOCYTE PERCENT MAN 3 % (0-0); MONOCYTES ABSOLUTE MAN 0.93 K/mm3 (0.16-1.47); MONOCYTES PERCENT MAN 3 % (4-13); NEUTROPHILS ABSOLUTE MAN 27.43 K/mm3 (1.96-9.15); OTHER CELL PERCENT MAN 1 % (0-0); SEG NEUTROPHILS PERCENT MAN 74 % (41-73)
[2025-04-07] MEDS ORDERED: Dose Adjust by Pharmacy XX STA ×2 (04:17→11:35)
--- NOTE | 2025-04-07 06:23 | NUR ---
SHIFT SUMMARY OPENS EYES TO VERBAL, ABLE TO ANSWER ORIENTATION QUESTIONS EARLIER IN SHIFT, BECAME MORE RESTLESS, SLIGHTLY AGITATED/ANXIOUS WITH CPAP, ORDER OBTAINED FOR PRECEDEX GTT WITH POSITIVE RESULT. PT CALM REST OF SHIFT. AT BS MOST OF NIGHT UNTIL 0500 THIS AM, UPDATED WITH PLAN OF CARE. HEPARIN GTT INCREASED PER PHARMACY PROTOCOL/ORDER. PLATELET COUNT [id number], DR LEAL NOTIFIED AND AWARE. VSS T/O SHIFT, AFEBRILE. WILL UPDATE DAY RN WITH ALL OUTSTANDING ISSUES AND PROBLEMS TO DATE.
[2025-04-07 10:58] LABS: Hematocrit 26.3 % (37.0-53.0); Hemoglobin 7.9 g/dL (13.5-17.5)
[2025-04-07 11:04] LABS: Platelet Count 47 K/mm3 (150-400)
--- NOTE | 2025-04-07 16:37 | NUR ---
SHIFT SUMMARY NO ACUTE CHANGES THIS SHIFT. PT INITIALLY ON BIPAP AND LIGHTLY SEDATED WITH PRECEDEX AT START OF SHIFT. PT OFF PRECEDEX AND BIPAP SINCE 9 THIS MORNING. PT ON 5-7L O2 NC. VITAL SIGNS HAVE REMAINED STABLE. PT REPORTS SOB AT TIMES WITH SPO2 MAINTAINING >92%. PT DROWSEY, BUT EASILY AROUSEABLE TO VOICE AND MAINTAINS ALERTNESS WITH SHORT CONVERSATION. PT ABLE TO TAKE SMALL AMOUNT OF PO INTAKE AFTER CLEARANCE BY ST THIS MORNING. HEPARIN GTT INFUSING AT 19 UNITS/KG/HR PER PHARMACY AND NS TKO. TOTH REMAINS IN PLACE WITH DARK YELLOW URINE OUTPUT NOTED. PT UP TO CHAIR THIS AFTERNOON WITH LIFT. PT SPOUSE AT BEDSIDE MOST OF THIS SHIFT. WILL CONTINUE TO MONITOR AND REPORT OFF TO ONCOMING RN.
[2025-04-07 18:26] LABS: Vancomycin, Trough 22.1 ug/mL (5.0-10.0)
[2025-04-08] VITALS (48 sets, daily range): BP systolic 95–132; BP diastolic 58–88
[2025-04-08 03:41] LABS: Hematocrit 22.6 % (37.0-53.0); Hemoglobin 6.9 g/dL (13.5-17.5); Mean Corpuscular HGB Conc 30.5 g/dL (31.5-36.5); Mean Corpuscular Volume 95 fL (80-100); NRBC ABSOLUTE 0.65 K/mm3 (0.00-0.02); NRBC Auto 3.4 /100 WBC (0.0-0.2); RDW Coefficient Variation 21.4 % (11.7-14.2); RDW Standard Deviation 73.7 fL (35.1-46.3)
[2025-04-08 03:52] LABS: Platelet Count 36 K/mm3 (150-400)
[2025-04-08 04:06] LABS: Alanine Aminotransfer (ALT/SGP 24.0 U/L (12-78); Albumin, Blood 2.6 g/dL (3.4-5.0); Albumin/Globulin Ratio 0.9 (0.8-1.8); Anion Gap 8.0 mmol/L (3-11); Aspartate Aminotrans (AST/SGOT 24.0 U/L (12-37); Bilirubin, Total 1.7 mg/dL (0.1-1.0); Blood Urea Nitrogen 39.0 mg/dL (8-24); CO2, Blood 26.0 mmol/L (21-32); Calcium, Blood 8.2 mg/dL (8.5-10.1); Chloride, Blood 109.0 mmol/L (98-108); Creatinine, Blood 0.97 mg/dL (0.60-1.20); Globulin, Blood 2.8 g/dL (2.2-4.0); Glucose, Blood 83.0 mg/dL (70-99); Potassium, Blood 4.1 mmol/L (3.5-5.5); Sodium, Blood 139.0 mmol/L (136-145); Total Protein, Blood 5.4 g/dL (6.4-8.2)
[2025-04-08 04:30] LABS: BAND PERCENT MAN 11 % (0-8); BASOPHILS ABSOLUTE MAN 0.00 K/mm3 (0.00-0.23); BASOPHILS PERCENT MAN 0 % (0-2); EOSINOPHILS ABSOLUTE MAN 0.00 K/mm3 (0.00-0.68); EOSINOPHILS PERCENT MAN 0 % (0-6); METAMYELOCYTE ABSOLUTE MAN 0.19 K/mm3 (0.00-0.00); METAMYELOCYTE PERCENT MAN 1 % (0-0); MONOCYTES ABSOLUTE MAN 0.58 K/mm3 (0.16-1.47); MONOCYTES PERCENT MAN 3 % (4-13); MYELOCYTE ABSOLUTE MAN 1.35 K/mm3 (0.00-0.00); MYELOCYTE PERCENT MAN 7 % (0-0); NEUTROPHILS ABSOLUTE MAN 17.25 K/mm3 (1.96-9.15); SEG NEUTROPHILS PERCENT MAN 78 % (41-73)
--- NOTE | 2025-04-08 06:30 | NUR ---
BLOOD TRANSFUSION BEGINNING VS; T96.9, 116/67, HR 92, O2SAT 98% PT AWAKE, LUNG SOUNDS DIM T/O, BUT CLEAR. 1 UNIT PRBC INFUSING.
--- NOTE | 2025-04-08 06:33 | NUR ---
SHIFT SUMMARY PT RESTLESS AT TIMES WITH CPAP ON DURING NIGHT, PRECEDEX RESTARTED FOR COMPLIANCE. FORGETFUL AT TIMES, ASKING TO CALL TO TAKE MASK OFF. CPAP CURRENTLY OFF, SWITCHED BACK TO NC 6L, O2 SAT 97%. LUNGS CONT TO BE VERY DIMINISHED T/O. FREQ MOIST UNPRODUCTIVE COUGH. DR LEAL UPDATED WITH ABNORMAL LABS THIS AM, PLATELETS 36, HGB 6.9. ORDER RECEIVED FOR TRANSFUSION OF 1 UNIT PRBC WHICH IS CURRENTLY TRANSFUSING. PT DENIES DISTRESS OR DISCOMFORT AT THIS TIME. WILL UPDATE DAY RN WITH OUTSTANDING ISSUES AND PROBLEMS TO DATE.
--- NOTE | 2025-04-08 08:00 | NUR ---
ASSUMPTION OF CARE PT ON 6L N/C AND 0.6 OF PRECEDEX D/T AGITATION T/O THE NIGHT. PT O2 >94%, BECOMES HYPOXIC AND SOB WITH REPOSITIONING, O2 DESATS TO 82-88%. PT IN AFIB, DENIES CHEST PAIN. MAP >65. PT DROWSY BUT AROUSABLE. TOTH IN PLACE AND DRAINING TO GRAVITY. TWO PIVS, IN RFA AND LWR. PT DENIES BEING IN PAIN. CALL LIGHT IS WITHIN REACH.
[2025-04-08 14:28] LABS: Hematocrit 27.1 % (37.0-53.0); Hemoglobin 8.3 g/dL (13.5-17.5)
--- NOTE | 2025-04-08 16:30 | NUR ---
PT UPDATE PT HAS HAD TWO EPISODES OF BLOOD-TINGED SPUTUM DURING OUR SHIFT.
--- NOTE | 2025-04-08 18:03 | NUR ---
SHIFT SUMMARY PT WAS ON 0.6 OF PRECEDEX AT ASSUMPTION OF CARE, TITRATED PRECEDEX DOWN AND TURNED OFF AT 0745. PT WAS ON 6L OF NC, TITRATED DOWN TO 2L NC WHILE RESTING. PT BECOMES HYPOXIC AND SOB WITH REPOSITIONING AND STIMULI. FINE CRACKLES IN BILATERAL UPPER LOBES AND MORE COARSE CRACKLES IN BILATERAL LOWER LOBES. DC'D RFA PIV AND PLACED A POWERGLIDE IN THE RIGHT BRACHIAL VEIN. LWR PIV FLUSHES. PT A&OX4, FOLLOWS COMMANDS, AND USES CALL LIGHT APPROPRIATELY. TOTH CATHETER IN PLACE AND DRAINING TO GRAVITY. PHYSICAL THERAPY WORKED WITH PT AND ASSISTED PT TO STAND WITH WALKER AND TAKE SMALL STEPS, PT TOLERATED WELL. HR IN 80-120S IN AFIB. BLE EDEMA +2. DENIES CHEST PAIN. MAP >65. AT SIDE, COOPERATIVE AND UNDERSTANDING OF PLAN OF CARE. CALL LIGHT WITHIN REACH.
[2025-04-08 22:58] LABS: Vancomycin, Trough 20.2 ug/mL (5.0-10.0)
[2025-04-09] VITALS (23 sets, daily range): BP systolic 116–139; BP diastolic 50–83
[2025-04-09 03:53] LABS: Hematocrit 24.9 % (37.0-53.0); Hemoglobin 7.8 g/dL (13.5-17.5); Mean Corpuscular HGB Conc 31.3 g/dL (31.5-36.5); Mean Corpuscular Volume 94 fL (80-100); NRBC ABSOLUTE 0.88 K/mm3 (0.00-0.02); NRBC Auto 4.3 /100 WBC (0.0-0.2); RDW Coefficient Variation 20.2 % (11.7-14.2); RDW Standard Deviation 67.7 fL (35.1-46.3)
[2025-04-09 03:59] LABS: Platelet Count 31 K/mm3 (150-400)
[2025-04-09 04:05] LABS: Anion Gap 8.0 mmol/L (3-11); Blood Urea Nitrogen 32.0 mg/dL (8-24); CO2, Blood 27.0 mmol/L (21-32); Calcium, Blood 8.1 mg/dL (8.5-10.1); Chloride, Blood 110.0 mmol/L (98-108); Creatinine, Blood 0.87 mg/dL (0.60-1.20); Glucose, Blood 97.0 mg/dL (70-99); Potassium, Blood 3.9 mmol/L (3.5-5.5); Sodium, Blood 141.0 mmol/L (136-145)
[2025-04-09 04:14] LABS: BAND PERCENT MAN 9 % (0-8); BASOPHILS ABSOLUTE MAN 0.00 K/mm3 (0.00-0.23); BASOPHILS PERCENT MAN 0 % (0-2); EOSINOPHILS ABSOLUTE MAN 0.00 K/mm3 (0.00-0.68); EOSINOPHILS PERCENT MAN 0 % (0-6); LYMPHOCYTES ABSOLUTE MAN 1.43 K/mm3 (0.84-5.20); LYMPHOCYTES PERCENT MAN 7 % (21-46); METAMYELOCYTE ABSOLUTE MAN 0.82 K/mm3 (0.00-0.00); METAMYELOCYTE PERCENT MAN 4 % (0-0); MONOCYTES ABSOLUTE MAN 0.20 K/mm3 (0.16-1.47); MONOCYTES PERCENT MAN 1 % (4-13); MYELOCYTE ABSOLUTE MAN 0.61 K/mm3 (0.00-0.00); MYELOCYTE PERCENT MAN 3 % (0-0); NEUTROPHILS ABSOLUTE MAN 17.46 K/mm3 (1.96-9.15); SEG NEUTROPHILS PERCENT MAN 76 % (41-73)
--- NOTE | 2025-04-09 05:11 | NUR ---
SHIFT SUMMARY: NO ACUTE CHANGES T/O THE NIGHT. PT REMAINS A&O X4, ABLE TO MAKE NEEDS KNOWN AND COMMUNICATES APPROPRIATELY W/STAFF. PT CAN ASSIST W/REPOSITIONING W/BUE, WEAKNESS NOTED IN BLE, THOUGH PT WILL/CAN ATTEMPT TO HELP WHEN ENCOURAGED. PTS STAYED AT BEDSIDE T/O THE NIGHT PT HAD ANXIETY THE PREVIOUS DIRECTOR CORPORATE SALES AND SHE WAS HOPING HER STAYING WOULD HELP. PT DID NOT REPORT ANY ANXIETY NOR HAD ANY OBSERVED ISSUES. SBP STABLE. MAP>65. HR 90S-100S, AFIB. PT ALTERNATING BETWEEN 2L O2 VIA NC AND HIS HOME CPAP W/5L O2 BLEED-IN, T/O THE NIGHT. PT CONTINUES TO HAVE INTERMITTENT COUGH W/SMALL AMOUNT OF SECRETIONS-DENIED NEED FOR ROBITUSSIN. ABD REMAINS MILDLY DISTENDED, SOFT TO PALPATION, W/ BT HYPOACTIVE X4. PT DENIES NAUSEA/VOMITING. TOTH CATH REMAINS IN PLACE, PATENT, DRAINING TEA COLORED URINE. SMALL BLOOD CLOTS OBSERVED IN TOTH TUBING/DRAINAGE BAG AFTER PT C/O OF SOME PAIN. TOTH EXAMINED, NO CONCERNS NOTED, UNSURE IF PT HAD PULLED ON IT. NO FURTHER C/O REPORTED BY PT. RN TO CONTINUE TO MONITOR. PIV IN LFA AND POWERGLIDE IN PATSY REMAIN SALINE LOCKED AT THIS TIME. CARE CONTINUES.
--- NOTE | 2025-04-09 09:02 | NUR ---
ASSUMED CARE NOTE: ASSUMED CARE OF PT AT 0700, PT ALERT AND ORIENTED X 4, ABLE TO FOLLOW COMMANDS AND COMMUNICATE NEEDS. PT ON 2L OF OXYGEN VIA NC, SPO2 ABOVE 92% NO RESP DISTRESS NOTED. PT IN AFIB WITH HR BETWEEN 90-110, BP STABLE. TOTH PATENT, DRAINING TO GRAVITY. 0845: ORAL CARE PROVIDED, PT UP IN CHAIR WITH LIFT ASSIST. NEEDS MOTIVATION AND ENCOURAGEMENT TO PARTICIPATE IN CARE. IN ROOM.
[2025-04-09] MEDS ORDERED: Polyethylene Glycol 3350 17 gm PO ONE (12:00)
[2025-04-09] MEDS ORDERED: Polyethylene Glycol 3350 17 gm PO PRN (12:00)
[2025-04-09] MEDS ORDERED: Docusate Sodium/Senna 1 Tab PO PRN (12:00)
[2025-04-09] MEDS ORDERED: Docusate Sodium/Senna 1 Tab PO ONE (12:00)
[2025-04-09 12:31] LABS: Vancomycin, Random 16.2 ug/mL
--- NOTE | 2025-04-09 17:39 | NUR ---
SHIFT SUMMARY: PT ALERT AND REMAINS ORIENTED X 4, ABLE TO ANSWER QUESTIONS. PT HAS A FLAT AFFECT, NOT RECEPTIVE AT TIMES. PT GIVES SHORT YES/NO ANSWERS AND KEEPS EYES CLOSED DURING INTERACTIONS ( STATES THIS IS NORMAL) PT REMAINS ON 2L OF OXYGEN VIA NC TO MAINTAIN SPO2 ABOVE 92% NO RESP DISTRESS NOTED. PT IN AFIB WITH HR IN THE 90'S TO LOW 100'S, BLOOD PRESSURES STABLE. TOTH PATENT, DRAINING TO GRAVITY, TEA COLORED URINE NOTED. ATTEMPTED TO BLADDER TRAIN PT, HE IS UNABLE TO FEEL BLADDER FILLING, CLAMPED TOTH FOR 1-2HRS AT A TIME, PT HAD ONE SMALL INCONTIENT VOID AROUND THE TOTH AFTER TWO HOUR IRENE, PT WAS NOT ABLE TO STATE IF HE FELT THE URGE TO VOID. AWARE, ORDERS TO KEEP TOTH IN TONIGHT AND READDRESS IN THE AM. PT UP IN THE CHAIR FOR 5 HRS THIS SHIFT USING LIFT. PT WAS NOT WILLING TO USE WALKER AND GAITBELT TO TRANSFER BACK TO BED, STATED " I FEEL WEAK" EDUCATION PROVIDED. POOR APPETITE NOTED, PT ENCOURGED TO EAT MEALS. PLAN OF CARE ONGOING, CALL LIGHT WITHIN REACH.
[2025-04-09] MEDS ORDERED: [UNRECOGNIZED DRUG - OTHER] PO SCH ×2 (21:00→21:23)
[2025-04-10] VITALS (18 sets, daily range): BP systolic 108–131; BP diastolic 60–85
[2025-04-10 03:01] LABS: Hematocrit 23.6 % (37.0-53.0); Hemoglobin 7.3 g/dL (13.5-17.5); Mean Corpuscular HGB Conc 30.9 g/dL (31.5-36.5); Mean Corpuscular Volume 94 fL (80-100); NRBC ABSOLUTE 0.41 K/mm3 (0.00-0.02); NRBC Auto 2.5 /100 WBC (0.0-0.2); RDW Coefficient Variation 20.5 % (11.7-14.2); RDW Standard Deviation 69.1 fL (35.1-46.3)
[2025-04-10 03:04] LABS: Platelet Count 24 K/mm3 (150-400)
[2025-04-10 03:17] LABS: Anion Gap 8.0 mmol/L (3-11); BAND PERCENT MAN 15 % (0-8); BASOPHILS ABSOLUTE MAN 0.00 K/mm3 (0.00-0.23); BASOPHILS PERCENT MAN 0 % (0-2); Blood Urea Nitrogen 28.0 mg/dL (8-24); CO2, Blood 28.0 mmol/L (21-32); Calcium, Blood 8.0 mg/dL (8.5-10.1); Chloride, Blood 109.0 mmol/L (98-108); Creatinine, Blood 0.82 mg/dL (0.60-1.20); EOSINOPHILS ABSOLUTE MAN 0.00 K/mm3 (0.00-0.68); EOSINOPHILS PERCENT MAN 0 % (0-6); Glucose, Blood 89.0 mg/dL (70-99); LYMPHOCYTES ABSOLUTE MAN 1.47 K/mm3 (0.84-5.20); LYMPHOCYTES PERCENT MAN 9 % (21-46); METAMYELOCYTE ABSOLUTE MAN 0.81 K/mm3 (0.00-0.00); METAMYELOCYTE PERCENT MAN 5 % (0-0); MONOCYTES ABSOLUTE MAN 0.49 K/mm3 (0.16-1.47); MONOCYTES PERCENT MAN 3 % (4-13); MYELOCYTE ABSOLUTE MAN 0.16 K/mm3 (0.00-0.00); MYELOCYTE PERCENT MAN 1 % (0-0); NEUTROPHILS ABSOLUTE MAN 13.43 K/mm3 (1.96-9.15); Potassium, Blood 3.8 mmol/L (3.5-5.5); SEG NEUTROPHILS PERCENT MAN 67 % (41-73); Sodium, Blood 141.0 mmol/L (136-145)
--- NOTE | 2025-04-10 05:32 | NUR ---
SHIFT SUMMARY: NO ACUTE CHANGES T/O THE NIGHT. PT REMAINS A&O X4, ABLE TO MAKE NEEDS KNOWN. PT CONTINUES TO HAVE FLAT AFFECT AND REQUIRES A LOT OF ENCOURAGEMENT TO PARTICIPATE IN CARE. PT AFEBRILE. DENIES PAIN. SBP STABLE. MAPS>65. HR 80S-LOW 100S. AFIB. PT USING HIS HOME CPAP UNIT T/O THE NIGHT, SATS>95%. LUNGS CLEAR/DIM. REPORTS SOB W/EXERTION. PT CONTINUES TO HAVE WEAK COUGH W/SMALL AMOUNT OF THICK, [place], SPUTUM. ABD MOD DISTENDED, DENIES NAUSEA. BT HYPOACTIVE X4. TOTH REMAINS IN PLACE, PATENT, DRAINING TO GRAVITY. PIV TO LFA. AT BEDSIDE T/O THE NIGHT. CARE CONTINUES.
[2025-04-10 09:16] LABS: Hematocrit 24.1 % (37.0-53.0); Hemoglobin 7.4 g/dL (13.5-17.5)
[2025-04-10 09:35] LABS: Platelet Count 23 K/mm3 (150-400)
--- NOTE | 2025-04-10 13:29 | NUR ---
ASSUMPTION OF CARE / SHIFT ASSESSMENT ASSUMED CARE OF PATIENT AT 0700 WITH BEDSIDE SHIFT REPORT FROM NIGHT RN. PATIENT WAS AWAKE ALERT AND ORIENTED X 4. PATIENT HAS FLAT AFFECT BUT COOPERATIVE WITH CARE. HE IS ON 2L O2 NC AND SATS ARE >95%. PATIENT HAS BEEN IN AFIB ALL SHIFT, MEDICATED PER EMAR. PATIENT TOLERATED ORAL NUTRITION WELL AND HAD AN OT EVAL. PATIENT WAS MOVED TO CHAIR. STATUS CHANGED TO MEDICAL STATUS WITH TELE PER PROVIDER. PATIENT RESTING COMFORTABLY, CALL LIGHT IN REACH. VITAL SIGNS ARE STABLE.
[2025-04-10] MEDS ORDERED: CefTRIAXone Sodium 2,000 MG in NS 100 ML IV SCH (16:00)
[2025-04-11] VITALS (12 sets, daily range): BP systolic 94–125; BP diastolic 61–82
[2025-04-11 04:19] LABS: Hematocrit 23.7 % (37.0-53.0); Hemoglobin 7.3 g/dL (13.5-17.5); Mean Corpuscular HGB Conc 30.8 g/dL (31.5-36.5); Mean Corpuscular Volume 94 fL (80-100); NRBC ABSOLUTE 0.12 K/mm3 (0.00-0.02); NRBC Auto 0.8 /100 WBC (0.0-0.2); RDW Coefficient Variation 20.7 % (11.7-14.2); RDW Standard Deviation 69.8 fL (35.1-46.3)
[2025-04-11 04:28] LABS: Platelet Count 23 K/mm3 (150-400)
[2025-04-11 04:41] LABS: Alanine Aminotransfer (ALT/SGP 21.0 U/L (12-78); Albumin, Blood 2.5 g/dL (3.4-5.0); Albumin/Globulin Ratio 1.0 (0.8-1.8); Anion Gap 6.0 mmol/L (3-11); Aspartate Aminotrans (AST/SGOT 17.0 U/L (12-37); Bilirubin, Total 1.4 mg/dL (0.1-1.0); Blood Urea Nitrogen 28.0 mg/dL (8-24); CO2, Blood 31.0 mmol/L (21-32); Calcium, Blood 8.0 mg/dL (8.5-10.1); Chloride, Blood 107.0 mmol/L (98-108); Creatinine, Blood 0.78 mg/dL (0.60-1.20); Globulin, Blood 2.6 g/dL (2.2-4.0); Glucose, Blood 89.0 mg/dL (70-99); Potassium, Blood 3.7 mmol/L (3.5-5.5); Sodium, Blood 140.0 mmol/L (136-145); Total Protein, Blood 5.1 g/dL (6.4-8.2)
[2025-04-11 05:38] LABS: BAND PERCENT MAN 16 % (0-8); BASOPHILS ABSOLUTE MAN 0.00 K/mm3 (0.00-0.23); BASOPHILS PERCENT MAN 0 % (0-2); EOSINOPHILS ABSOLUTE MAN 0.00 K/mm3 (0.00-0.68); EOSINOPHILS PERCENT MAN 0 % (0-6); LYMPHOCYTES ABSOLUTE MAN 1.05 K/mm3 (0.84-5.20); LYMPHOCYTES PERCENT MAN 7 % (21-46); METAMYELOCYTE ABSOLUTE MAN 1.35 K/mm3 (0.00-0.00); METAMYELOCYTE PERCENT MAN 9 % (0-0); MONOCYTES ABSOLUTE MAN 1.50 K/mm3 (0.16-1.47); MONOCYTES PERCENT MAN 10 % (4-13); MYELOCYTE ABSOLUTE MAN 0.45 K/mm3 (0.00-0.00); MYELOCYTE PERCENT MAN 3 % (0-0); NEUTROPHILS ABSOLUTE MAN 10.69 K/mm3 (1.96-9.15); SEG NEUTROPHILS PERCENT MAN 55 % (41-73)
--- NOTE | 2025-04-11 06:00 | NUR ---
SHIFT SUMMARY: NO ACUTE CHANGES T/O THE NIGHT. PT MED; NO-TELE STATUS. PT REMAINS A&O X4, ABLE TO MAKE NEEDS KNOWN. AT BEDSIDE T/O THE NIGHT. PT USING HOME CPAP WHILE ASLEEP, W/ 3L O2 BLEED-IN. DURING WAKEFULNESS, PT CONTINUES ON 2L 02 VIA NC. SBP STABLE. MAP>65. ABD SOFT, BT HYPOACTIVE X4. PT DENIES NAUSEA. PT CONTINUES TO DO OKAY W/ ORAL INTAKE, THOUGH OBSERVED TO COUGH AFTER DRINKING FLUIDS. TOTH REMAINS IN PLACE. PER DAY SHIFT RN, PT DID NOT DO WELL W/ BLADDER TRAINING. CONTINUES TO VOICE CONCERNS OF RETENTION. PT SCROTUM REMAINS SWOLLEN. THIS RN CALLED HOSPITALIST REGARDING REMOVING VS KEEPING TOTH IN AND RELAYED CONCERNS. HOSPITALIST ADVISED SPEAKING W/PRIMARY PROVIDER ABOUT POSSIBLE UROLOGY CONSULT. THIS RN TO COMMUNICATE W/ONCOMING STAFF REGARDING THIS MATTER. PT HAS NO PIV ACCESS AT THIS TIME. CARE CONTINUES. THIS RN TO REPORT TO ONCOMING RN.
--- NOTE | 2025-04-11 18:53 | NUR ---
Transfer. Pt moved to room 349. Report given to medical floor RN. Pt taken via wheelchair to new room at approximately 1840. accompanied pt to new room, all personal belonging brought with pt. VS stable at time of transport. See chart for details.
--- NOTE | 2025-04-11 19:23 | NUR ---
TRANSFER NOTE REPORT RECIEVED FROM HELEN IN ICU, PATIENT TRANSFERRED TO ROOM 349 AT 1835. PATIENT AMBULATORY WITH 1 PERSON ASSIST. , MARIANGEL AT BEDSIDE. HOME MEDICATION LOCKED IN PATIENT'S DRAWER. A/OX4, ABLE TO MAKE NEEDS KNOWN. ORIENTED TO ROOM AND CALL LIGHT SYSTEM. BED ALARM IN PLACE. HOME CPAP MACHINE AT BEDSIDE. PLAN TO DISCHARGE TO [facility] POSSIBLY TOMORROW OR WEDNESDAY. NO OTHER CONCERNS AT THIS TIME, REPORT GIVEN TO FINANCIAL OFFICER RN.
[2025-04-11] MEDS ORDERED: Trimethoprim/Sulfamethoxazole DS Tab PO SCH (21:00)
[2025-04-12] VITALS (10 sets, daily range): BP systolic 103–129; BP diastolic 64–78
--- NOTE | 2025-04-12 04:31 | NUR ---
SHIFT SUMMARY A&OX4. ABLE TO MAKE ALL NEEDS KNOWN. PT ABLE TO AMBULATE WITH 1 PERSON ASSIST AND FWW TO RESTROOM. ABLE TO URINATE ON HIS OWN SINCE TOTH REMOVED. DENIES PAIN. PT REPORTS SLIGHT SOB AT REST AND SOB INCREASES WITH EXCERTION. O2 SATS REMAINING AROUND 89% ON RA. APPLIED 2 LPM O2 VIA NC AND SATS INCREASED TO 94%. ONCE PT WENT TO SLEEP HE WORE HIS CPAP WITH O2 AT 3 LPM ATTACHED. O2 SATS HAVE REMAINED IN HIGH 90'S. PT HAS SLEPT WELL. CURRENTLY PT IS SLEEPING IN HIS BED AT LOWEST POSTION WITH RAILS X2, HOB ELEVATED AND CALL LIGHT WITHIN REACH.
[2025-04-12 05:58] LABS: Hematocrit 23.1 % (37.0-53.0); Hemoglobin 7.1 g/dL (13.5-17.5); Mean Corpuscular HGB Conc 30.7 g/dL (31.5-36.5); Mean Corpuscular Volume 96 fL (80-100); NRBC ABSOLUTE 0.09 K/mm3 (0.00-0.02); NRBC Auto 0.5 /100 WBC (0.0-0.2); RDW Coefficient Variation 20.5 % (11.7-14.2); RDW Standard Deviation 70.2 fL (35.1-46.3)
[2025-04-12 06:08] LABS: Platelet Count 25 K/mm3 (150-400)
[2025-04-12 06:18] LABS: Anion Gap 7.0 mmol/L (3-11); Blood Urea Nitrogen 26.0 mg/dL (8-24); CO2, Blood 30.0 mmol/L (21-32); Calcium, Blood 7.9 mg/dL (8.5-10.1); Chloride, Blood 104.0 mmol/L (98-108); Creatinine, Blood 0.86 mg/dL (0.60-1.20); Glucose, Blood 87.0 mg/dL (70-99); Potassium, Blood 3.8 mmol/L (3.5-5.5); Sodium, Blood 137.0 mmol/L (136-145)
--- NOTE | 2025-04-12 06:19 | NUR ---
RECEIVED A CRITICAL LAB RESULT OF PLATELET 25. THIS CONTINUING TO TREND DOWN. PT SHOWS NO S/S OF BLEEDING. DR. LEAL CALLED AND INFORMED. RECOMMENDED TO CONTINUE TO MONITOR AT THIS TIME PLATELETS ARE CONTINUING TO TREND DOWN. WILL REPORT TO DAYSHIFT NURSE WELL.
[2025-04-12 06:29] LABS: BAND PERCENT MAN 18 % (0-8); BASOPHILS ABSOLUTE MAN 0.16 K/mm3 (0.00-0.23); BASOPHILS PERCENT MAN 1 % (0-2); EOSINOPHILS ABSOLUTE MAN 0.00 K/mm3 (0.00-0.68); EOSINOPHILS PERCENT MAN 0 % (0-6); LYMPHOCYTES ABSOLUTE MAN 1.85 K/mm3 (0.84-5.20); LYMPHOCYTES PERCENT MAN 11 % (21-46); METAMYELOCYTE ABSOLUTE MAN 0.50 K/mm3 (0.00-0.00); METAMYELOCYTE PERCENT MAN 3 % (0-0); MONOCYTES ABSOLUTE MAN 0.33 K/mm3 (0.16-1.47); MONOCYTES PERCENT MAN 2 % (4-13); MYELOCYTE ABSOLUTE MAN 2.19 K/mm3 (0.00-0.00); MYELOCYTE PERCENT MAN 13 % (0-0); NEUTROPHILS ABSOLUTE MAN 11.83 K/mm3 (1.96-9.15); SEG NEUTROPHILS PERCENT MAN 52 % (41-73)
[2025-04-12] MEDS ORDERED: Polyethylene Glycol 3350 17 gm PO SCH (18:01)
--- NOTE | 2025-04-12 18:21 | NUR ---
pt did have a bm today and refused the new dose of miralax, completed one unit of prbc's, tolerated well, no further changes this shift. call light in reach.
[2025-04-13 04:34] VITALS: BP 117/69
--- NOTE | 2025-04-13 05:29 | NUR ---
CLINICAL GENETICS LABORATORY CHIEF SUMMARY PT A/OX4. ABLE TO MAKE NEEDS KNOWN. NO ACUTE EVENTS. PT IS 1PA WITH FWW AND GB TO BATHROOM DUE TO GENERAILZED WEAKNESS. PT REQUESTED ASSIST WITH CPAP AND O2 BLEED IN. RT CALLED FOR ASSIST. AT BEDSIDE FOR FIRST FEW HOURS OF SHIFT. PLAN FOR PT TO D/C TO [facility]; WANTS TO BE CALLED PRIOR TO TRANSPORT. ADVISED WOULD PASS ON TO DAY NURSE. CALL LIGHT ACCESSIBLE. CARE WILL CONT UNTIL REPORT GIVEN TO ONCOMING NURSE.
[2025-04-13 05:43] LABS: Hematocrit 25.1 % (37.0-53.0); Hemoglobin 7.8 g/dL (13.5-17.5); Mean Corpuscular HGB Conc 31.1 g/dL (31.5-36.5); Mean Corpuscular Volume 93 fL (80-100); NRBC ABSOLUTE 0.15 K/mm3 (0.00-0.02); NRBC Auto 0.8 /100 WBC (0.0-0.2); RDW Coefficient Variation 20.3 % (11.7-14.2); RDW Standard Deviation 66.6 fL (35.1-46.3)
[2025-04-13 05:55] LABS: Platelet Count 32 K/mm3 (150-400)
--- NOTE | 2025-04-13 05:56 | NUR ---
CRITICAL VALUE PLATLETS ARE 32; TREND UP FROM YESTERDAY.
[2025-04-13 06:13] LABS: BAND PERCENT MAN 15 % (0-8); BASOPHILS ABSOLUTE MAN 0.00 K/mm3 (0.00-0.23); BASOPHILS PERCENT MAN 0 % (0-2); EOSINOPHILS ABSOLUTE MAN 0.39 K/mm3 (0.00-0.68); EOSINOPHILS PERCENT MAN 2 % (0-6); LYMPHOCYTES ABSOLUTE MAN 2.36 K/mm3 (0.84-5.20); LYMPHOCYTES PERCENT MAN 12 % (21-46); METAMYELOCYTE ABSOLUTE MAN 1.97 K/mm3 (0.00-0.00); METAMYELOCYTE PERCENT MAN 10 % (0-0); MONOCYTES ABSOLUTE MAN 0.39 K/mm3 (0.16-1.47); MONOCYTES PERCENT MAN 2 % (4-13); MYELOCYTE ABSOLUTE MAN 0.78 K/mm3 (0.00-0.00); MYELOCYTE PERCENT MAN 4 % (0-0); NEUTROPHILS ABSOLUTE MAN 13.80 K/mm3 (1.96-9.15); SEG NEUTROPHILS PERCENT MAN 55 % (41-73)
[2025-04-13 06:32] LABS: Anion Gap 8.0 mmol/L (3-11); Blood Urea Nitrogen 19.0 mg/dL (8-24); CO2, Blood 28.0 mmol/L (21-32); Calcium, Blood 8.0 mg/dL (8.5-10.1); Chloride, Blood 105.0 mmol/L (98-108); Creatinine, Blood 0.98 mg/dL (0.60-1.20); Glucose, Blood 82.0 mg/dL (70-99); Potassium, Blood 3.8 mmol/L (3.5-5.5); Sodium, Blood 137.0 mmol/L (136-145)
[2025-04-13 07:04] VITALS: BP 137/84
[2025-04-13 17:13] VITALS: BP 130/81
--- NOTE | 2025-04-13 18:26 | NUR ---
SHIFT SUMMARY PT CONT LEVEL OF CARE. PT NOTED TO BE A&OX4 WTIH SOME CONFUSION/FORGETFULLNESS AND ASSIST X1 WITH FWW. PT CONT ON ROOM AIR DURNING THE DAY AND CPAP AT NOC AND WHEN NAPPING. PT PLT NOTED TO BE 32 BUT TRENDING UP FROM PREVIOUS. HGB NOTED TO 7.8. PLAN IS TO DC TO SNF CONT TO AWAIT SNF RESPONSE.
[2025-04-13 19:25] VITALS: BP 129/68
--- NOTE | 2025-04-14 03:01 | NUR ---
SHIFT SUMMARY: AOX4. VSS. CURRENTLY USING HOME CPAP WITH 2L O2. PT DID COMPLAIN OF SOME PAIN TO THROAT FROM COUGHING, COUGH MEDICATION GIVEN. NO OTHER COMPLAINTS AT THIS TIME. CALL LIGHT IS WITHIN REACH. BED IS LOW AND LOCKED.
[2025-04-14 04:16] VITALS: BP 108/71
[2025-04-14 04:52] LABS: Hematocrit 24.7 % (37.0-53.0); Hemoglobin 7.8 g/dL (13.5-17.5); Mean Corpuscular HGB Conc 31.6 g/dL (31.5-36.5); Mean Corpuscular Volume 93 fL (80-100); NRBC ABSOLUTE 0.14 K/mm3 (0.00-0.02); NRBC Auto 0.6 /100 WBC (0.0-0.2); RDW Coefficient Variation 19.9 % (11.7-14.2); RDW Standard Deviation 65.8 fL (35.1-46.3)
[2025-04-14 04:57] LABS: Platelet Count 47 K/mm3 (150-400)
[2025-04-14 05:16] LABS: Anion Gap 7.0 mmol/L (3-11); Blood Urea Nitrogen 18.0 mg/dL (8-24); CO2, Blood 29.0 mmol/L (21-32); Calcium, Blood 8.0 mg/dL (8.5-10.1); Chloride, Blood 105.0 mmol/L (98-108); Creatinine, Blood 1.03 mg/dL (0.60-1.20); Glucose, Blood 80.0 mg/dL (70-99); Potassium, Blood 3.9 mmol/L (3.5-5.5); Sodium, Blood 137.0 mmol/L (136-145)
[2025-04-14 06:37] LABS: BAND PERCENT MAN 23 % (0-8); BASOPHILS ABSOLUTE MAN 0.47 K/mm3 (0.00-0.23); BASOPHILS PERCENT MAN 2 % (0-2); EOSINOPHILS ABSOLUTE MAN 0.00 K/mm3 (0.00-0.68); EOSINOPHILS PERCENT MAN 0 % (0-6); LYMPHOCYTES ABSOLUTE MAN 1.19 K/mm3 (0.84-5.20); LYMPHOCYTES PERCENT MAN 5 % (21-46); METAMYELOCYTE ABSOLUTE MAN 0.23 K/mm3 (0.00-0.00); METAMYELOCYTE PERCENT MAN 1 % (0-0); MONOCYTES ABSOLUTE MAN 0.95 K/mm3 (0.16-1.47); MONOCYTES PERCENT MAN 4 % (4-13); MYELOCYTE ABSOLUTE MAN 2.39 K/mm3 (0.00-0.00); MYELOCYTE PERCENT MAN 10 % (0-0); NEUTROPHILS ABSOLUTE MAN 18.66 K/mm3 (1.96-9.15); SEG NEUTROPHILS PERCENT MAN 55 % (41-73)
[2025-04-14 06:59] VITALS: BP 136/89
[2025-04-14 10:23] LABS: CORONAVIRUS COVID-19 AG Negative (NEGATIVE)
[2025-04-14 16:00] LABS: Source, Urine Clean Catch
[2025-04-14 16:04] LABS: Bilirubin, Urine Neg (Neg); Color, Urine Yellow (P-Yellow); Glucose Qualitative, Urine Neg (Neg); Ketones, Urine Neg (Neg); Leukocyte Esterase, Urine Neg (Neg); Protein, Urine 2+ (Neg); Specific Gravity, Urine 1.010 (1.003-1.022); Urobilinogen, Urine 2+ (Normal)
[2025-04-14 16:15] LABS: White Blood Cells, Urine 0-2 /hpf (0-5)
[2025-04-14 16:29] VITALS: BP 135/70
--- NOTE | 2025-04-14 18:10 | NUR ---
PT IS A/OX4. PLEASANT AND COOPERATIVE WITH CARE. USES HIS CALL LIGHT APPROPRIATELY. PTS WBC COUNT HAS BEEN TRENDING UP, THE FLU, COVID, AND UTI HAVE BEEN RULED OUT. CURRENT PLAN IS TO D/C TO UV ONCE WHITE COUNT TRENDS BACK DOWN. PT IS CURRENTLY RESTING IN BED WITH BED IN LOWEST POSITION AND CALL LIGHT IN REACH.
[2025-04-14 19:50] VITALS: BP 134/88
[2025-04-15 03:51] VITALS: BP 121/71
--- NOTE | 2025-04-15 05:54 | NUR ---
SHIFT SUMMARY: AOX4. INDEPENDENT WITH FWW. LUNG SOUNDS CLEAR TO DIMINISHED. INTERMITTENT CHRONIC COUGHING. AWAITING PLACEMENT, [facility]. CALL LIGHT IS WITHIN REACH. BED IS LOW AND LOCKED.
[2025-04-15 06:37] LABS: Hematocrit 25.4 % (37.0-53.0); Hemoglobin 8.2 g/dL (13.5-17.5); Mean Corpuscular HGB Conc 32.3 g/dL (31.5-36.5); Mean Corpuscular Volume 91 fL (80-100); NRBC ABSOLUTE 0.12 K/mm3 (0.00-0.02); NRBC Auto 0.5 /100 WBC (0.0-0.2); Platelet Count 63 K/mm3 (150-400); RDW Coefficient Variation 19.7 % (11.7-14.2); RDW Standard Deviation 63.5 fL (35.1-46.3)
[2025-04-15 06:41] LABS: Alanine Aminotransfer (ALT/SGP 19.0 U/L (12-78); Albumin, Blood 2.8 g/dL (3.4-5.0); Albumin/Globulin Ratio 1.1 (0.8-1.8); Anion Gap 7.0 mmol/L (3-11); Aspartate Aminotrans (AST/SGOT 21.0 U/L (12-37); Bilirubin, Total 1.0 mg/dL (0.1-1.0); Blood Urea Nitrogen 17.0 mg/dL (8-24); CO2, Blood 27.0 mmol/L (21-32); Calcium, Blood 8.2 mg/dL (8.5-10.1); Chloride, Blood 105.0 mmol/L (98-108); Creatinine, Blood 1.2 mg/dL (0.60-1.20); Globulin, Blood 2.5 g/dL (2.2-4.0); Glucose, Blood 79.0 mg/dL (70-99); Potassium, Blood 4.4 mmol/L (3.5-5.5); Sodium, Blood 135.0 mmol/L (136-145); Total Protein, Blood 5.3 g/dL (6.4-8.2)
[2025-04-15 07:49] VITALS: BP 120/73
[2025-04-15 07:59] LABS: BAND PERCENT MAN 16 % (0-8); BASOPHILS ABSOLUTE MAN 0.00 K/mm3 (0.00-0.23); BASOPHILS PERCENT MAN 0 % (0-2); EOSINOPHILS ABSOLUTE MAN 0.00 K/mm3 (0.00-0.68); EOSINOPHILS PERCENT MAN 0 % (0-6); LYMPHOCYTES ABSOLUTE MAN 2.37 K/mm3 (0.84-5.20); LYMPHOCYTES PERCENT MAN 9 % (21-46); METAMYELOCYTE ABSOLUTE MAN 4.22 K/mm3 (0.00-0.00); METAMYELOCYTE PERCENT MAN 16 % (0-0); MONOCYTES ABSOLUTE MAN 2.11 K/mm3 (0.16-1.47); MONOCYTES PERCENT MAN 8 % (4-13); MYELOCYTE ABSOLUTE MAN 1.32 K/mm3 (0.00-0.00); MYELOCYTE PERCENT MAN 5 % (0-0); NEUTROPHILS ABSOLUTE MAN 16.38 K/mm3 (1.96-9.15); SEG NEUTROPHILS PERCENT MAN 46 % (41-73)
[2025-04-15 15:26] VITALS: BP 102/59
--- NOTE | 2025-04-15 16:22 | NUR ---
PT IS A/Ox4. PLEASANT AND COOPERATIVE WITH CARE. GOAL IS TO D/C TO [facility]. EMAR UPDATED WITH NEW ABX D/T WHITE COUNT TRENDING UP. PT HAS MODERATE EDEMA TO BLE AND SCROTUM.
[2025-04-15 19:52] VITALS: BP 126/80
[2025-04-16 02:32] VITALS: BP 111/62
--- NOTE | 2025-04-16 04:03 | NUR ---
SHIFT SUMMARY: AOX4. VSS. AMBULATES INDEPENDENTLY WITH FWW. STEADY ON FEET. LUNGS CLEAR TO DIMINISHED. CURRENTLY ON CPAP WITH 2L O2, BASELINE AT HOME. NO COMPLAINTS AT THIS TIME. CALL LIGHT IS WITHIN REACH. BED IS LOW AND LOCKED.
[2025-04-16 06:35] LABS: Hematocrit 24.0 % (37.0-53.0); Hemoglobin 7.5 g/dL (13.5-17.5); Mean Corpuscular HGB Conc 31.3 g/dL (31.5-36.5); Mean Corpuscular Volume 94 fL (80-100); NRBC ABSOLUTE 0.06 K/mm3 (0.00-0.02); NRBC Auto 0.2 /100 WBC (0.0-0.2); Platelet Count 77 K/mm3 (150-400); RDW Coefficient Variation 19.7 % (11.7-14.2); RDW Standard Deviation 65.6 fL (35.1-46.3)
[2025-04-16 06:45] LABS: Alanine Aminotransfer (ALT/SGP 21.0 U/L (12-78); Albumin, Blood 2.7 g/dL (3.4-5.0); Albumin/Globulin Ratio 1.0 (0.8-1.8); Anion Gap 7.0 mmol/L (3-11); Aspartate Aminotrans (AST/SGOT 22.0 U/L (12-37); Bilirubin, Total 0.9 mg/dL (0.1-1.0); Blood Urea Nitrogen 17.0 mg/dL (8-24); CO2, Blood 27.0 mmol/L (21-32); Calcium, Blood 8.1 mg/dL (8.5-10.1); Chloride, Blood 106.0 mmol/L (98-108); Creatinine, Blood 1.24 mg/dL (0.60-1.20); Globulin, Blood 2.6 g/dL (2.2-4.0); Glucose, Blood 82.0 mg/dL (70-99); Potassium, Blood 4.3 mmol/L (3.5-5.5); Sodium, Blood 136.0 mmol/L (136-145); Total Protein, Blood 5.3 g/dL (6.4-8.2)
[2025-04-16 06:59] LABS: BAND PERCENT MAN 16 % (0-8); BASOPHILS ABSOLUTE MAN 0.00 K/mm3 (0.00-0.23); BASOPHILS PERCENT MAN 0 % (0-2); EOSINOPHILS ABSOLUTE MAN 0.00 K/mm3 (0.00-0.68); EOSINOPHILS PERCENT MAN 0 % (0-6); LYMPHOCYTES ABSOLUTE MAN 1.46 K/mm3 (0.84-5.20); LYMPHOCYTES PERCENT MAN 6 % (21-46); METAMYELOCYTE ABSOLUTE MAN 4.39 K/mm3 (0.00-0.00); METAMYELOCYTE PERCENT MAN 18 % (0-0); MONOCYTES ABSOLUTE MAN 0.48 K/mm3 (0.16-1.47); MONOCYTES PERCENT MAN 2 % (4-13); MYELOCYTE ABSOLUTE MAN 0.48 K/mm3 (0.00-0.00); MYELOCYTE PERCENT MAN 2 % (0-0); NEUTROPHILS ABSOLUTE MAN 17.58 K/mm3 (1.96-9.15); SEG NEUTROPHILS PERCENT MAN 56 % (41-73)
--- NOTE | 2025-04-16 07:15 | NUR ---
ASSUMED CARE OF PATIENT AT THIS TIME. PATIENT IN SOFT WRIST RESTRAINTS, SITTING IN BED WITH SITTER AT BEDSIDE. CALL LIGHT IN REACH.
[2025-04-16 07:23] VITALS: BP 106/64
[2025-04-16] MEDS ORDERED: DILT180 PO (14:44)
[2025-04-16] MEDS ORDERED: TAMS.4ER PO (14:48)
[2025-04-16] MEDS ORDERED: CIPR500 PO (14:48)
--- NOTE | 2025-04-16 15:08 | NUR ---
PATIENT DISCHARGING TO HOME WITH . IV REMOVED, PATIENT EDUCATED WITH AT BEDSIDE ABOUT FOLLOW UP PLAN AND NEW MEDICAITONS. DENIED NEEDS AT THIS MOMENT. MEDICAL STAFF TO GO WITH PATIENT OUT TO DOOR.
== END 2025-04-16 15:34 | disposition home health service (06) | DRG 871 ==
LOC: ER 13:43 → PCU 13:44 → ICUE 13:44 → PCU 21:19 → ICUE 04-04 03:31 → MEDS 04-04 10:41 → ICUE 04-05 08:46 → MEDS 04-11 18:30
PROVIDERS: Emergency Medicine; Internal Medicine; Nurse Practitioner Acute Care; Student in an Organized Health Care Education/Training Program; ADMIT Internal Medicine
PROC: 5A09457 Assistance with Respiratory Ventilation, 24-96 Consecutive Hours, Continuous Positive Airway Pressure (ICD-10-PCS; 2025-04-03)
PROC: 3E03329 Introduction of Other Anti-infective into Peripheral Vein, Percutaneous Approach (ICD-10-PCS; principal; 2025-04-04)
PROC: 5A0935A Assistance with Respiratory Ventilation, Less than 24 Consecutive Hours, High Flow/Velocity Cannula (ICD-10-PCS; 2025-04-04)
PROC: 3E033XZ Introduction of Vasopressor into Peripheral Vein, Percutaneous Approach (ICD-10-PCS; 2025-04-04)
PROC: 4A133R1 Monitoring of Arterial Saturation, Peripheral, Percutaneous Approach (ICD-10-PCS; 2025-04-06)
PROC: 30233N1 Transfusion of Nonautologous Red Blood Cells into Peripheral Vein, Percutaneous Approach (ICD-10-PCS; 2025-04-12)
DX: A41.51 Sepsis due to Escherichia coli [E. coli] (principal); G92.8 Other toxic encephalopathy; J18.9 Pneumonia, unspecified organism; J69.0 Pneumonitis due to inhalation of food and vomit; R65.21 Severe sepsis with septic shock; J96.01 Acute respiratory failure with hypoxia; J96.02 Acute respiratory failure with hypercapnia; D47.1 Chronic myeloproliferative disease; N17.9 Acute kidney failure, unspecified; D84.9 Immunodeficiency, unspecified; E87.20 Acidosis, unspecified; Z99.81 Dependence on supplemental oxygen; F17.290 Nicotine dependence, other tobacco product, uncomplicated; I08.1 Rheumatic disorders of both mitral and tricuspid valves; I77.819 Aortic ectasia, unspecified site; G47.33 Obstructive sleep apnea (adult) (pediatric); D69.6 Thrombocytopenia, unspecified; Z68.33 Body mass index [BMI] 33.0-33.9, adult; M54.9 Dorsalgia, unspecified; E66.01 Morbid (severe) obesity due to excess calories; I48.91 Unspecified atrial fibrillation; Z79.01 Long term (current) use of anticoagulants; K59.00 Constipation, unspecified; N40.0 Benign prostatic hyperplasia without lower urinary tract symptoms; R33.9 Retention of urine, unspecified; Z79.899 Other long term (current) drug therapy; Z88.0 Allergy status to penicillin
CPT/HCPCS: 0202U; 36415; 36430; 36600; 51703; 71045; 71260; 72100; 74176; 80048; 80053; 80202; 81001; 82247; 82248; 82803; 83605; 83735; 83880; 84145; 84153; 84443; 85014; 85018; 85025; 85049; 85610; 85730; 86140; 86850; 86900; 86901; 86923; 87040; 87070; 87077; 87081; 87186; 87205; 87428-QW; 92526; 92610; 93005; 93010; 93306; 94660; 94664; 94762; 96361; 96365; 96367; 96375; 96376; 97110; 97116; 97162; 97166; 97530; 97535; 99285-25; A9270; C1751; G0378; J0692; J0696; J1644; J1938; J2060; J2185; J2470; J3373; J3475; J7030; J7040; J7050; P9016; P9047; Q9967; U0002

== ENCOUNTER 2025-05-10 13:26 | Day surgery (SDC) | payer MEDICARE, OTHER ==
[2025-05-07 10:17] LABS: Hematocrit 23.3 % (37.0-53.0); Hemoglobin 7.2 g/dL (13.5-17.5); Mean Corpuscular HGB Conc 30.9 g/dL (31.5-36.5); Mean Corpuscular Volume 96 fL (80-100); NRBC ABSOLUTE 0.14 K/mm3 (0.00-0.02); NRBC Auto 1.4 /100 WBC (0.0-0.2); Platelet Count 101 K/mm3 (150-400); RDW Coefficient Variation 20.9 % (11.7-14.2); RDW Standard Deviation 71.2 fL (35.1-46.3)
[2025-05-07 10:25] LABS: Alanine Aminotransfer (ALT/SGP 30.0 U/L (12-78); Albumin, Blood 3.6 g/dL (3.4-5.0); Albumin/Globulin Ratio 1.2 (0.8-1.8); Anion Gap 6.0 mmol/L (3-11); Aspartate Aminotrans (AST/SGOT 17.0 U/L (12-37); Bilirubin, Total 0.9 mg/dL (0.1-1.0); Blood Urea Nitrogen 18.0 mg/dL (8-24); CO2, Blood 28.0 mmol/L (21-32); Calcium, Blood 8.9 mg/dL (8.5-10.1); Chloride, Blood 107.0 mmol/L (98-108); Creatinine, Blood 1.37 mg/dL (0.60-1.20); Globulin, Blood 3.0 g/dL (2.2-4.0); Glucose, Blood 70.0 mg/dL (70-99); Potassium, Blood 4.2 mmol/L (3.5-5.5); Sodium, Blood 137.0 mmol/L (136-145); Total Protein, Blood 6.6 g/dL (6.4-8.2)
[2025-05-07 10:33] LABS: BAND PERCENT MAN 16 % (0-8); BASOPHILS ABSOLUTE MAN 0.09 K/mm3 (0.00-0.23); BASOPHILS PERCENT MAN 1 % (0-2); EOSINOPHILS ABSOLUTE MAN 0.00 K/mm3 (0.00-0.68); EOSINOPHILS PERCENT MAN 0 % (0-6); LYMPHOCYTES ABSOLUTE MAN 1.96 K/mm3 (0.84-5.20); LYMPHOCYTES PERCENT MAN 20 % (21-46); METAMYELOCYTE ABSOLUTE MAN 0.29 K/mm3 (0.00-0.00); METAMYELOCYTE PERCENT MAN 3 % (0-0); MONOCYTES ABSOLUTE MAN 0.00 K/mm3 (0.16-1.47); MONOCYTES PERCENT MAN 0 % (4-13); MYELOCYTE ABSOLUTE MAN 0.19 K/mm3 (0.00-0.00); MYELOCYTE PERCENT MAN 2 % (0-0); NEUTROPHILS ABSOLUTE MAN 7.27 K/mm3 (1.96-9.15); SEG NEUTROPHILS PERCENT MAN 58 % (41-73)
[~2025-05-10 13:26] MED LIST changes: +CIPR500 PO; +DILT180 PO; +FLUT.05NI; +NS 250 ML IV SCH; +TAMS.4ER PO; +[UNRECOGNIZED DRUG - OTHER] PO
[2025-05-10 13:41] VITALS: BP 113/73
[2025-05-10 14:32] VITALS: BP 113/80
[2025-05-10 15:34] VITALS: BP 116/75
[2025-05-10 16:25] VITALS: BP 106/65
[2025-05-10 17:25] VITALS: BP 133/80
[2025-05-10 17:55] VITALS: BP 136/82
== END 2025-05-10 17:55 | disposition home or self-care (01) ==
LOC: ATC 13:26
PROVIDERS: Internal Medicine Hematology & Oncology
DX: D47.1 Chronic myeloproliferative disease (principal); D72.819 Decreased white blood cell count, unspecified; D69.6 Thrombocytopenia, unspecified; C61 Malignant neoplasm of prostate; D63.0 Anemia in neoplastic disease; I48.91 Unspecified atrial fibrillation; I50.9 Heart failure, unspecified; K76.0 Fatty (change of) liver, not elsewhere classified; Z79.01 Long term (current) use of anticoagulants; Z79.899 Other long term (current) drug therapy; Z88.0 Allergy status to penicillin
CPT/HCPCS: 36415; 80053; 85025; 86850; 86900; 86901; 86923; J7050; P9016

== ENCOUNTER 2025-07-03 02:34 | Day surgery (SDC) | payer MEDICARE, OTHER ==
[2025-07-03] VITALS (7 sets, daily range): BP systolic 88–103; BP diastolic 47–61
[~2025-07-03 02:34] MED LIST changes: -NS 250 ML IV SCH
[2025-07-03] MEDS ORDERED: NS 250 ML IV SCH (07:00)
[2025-07-03] MEDS ORDERED: METOPROLOL SUCC25 MG PO (07:47)
[2025-07-03] MEDS ORDERED: TAMSULOSIN HCL0.4 M1 PO (07:48)
== END 2025-07-03 11:16 | disposition home or self-care (01) ==
LOC: ATC 02:34 → EDSTATUS 07-05 13:30
DX: D64.9 Anemia, unspecified (principal); D47.1 Chronic myeloproliferative disease; D69.6 Thrombocytopenia, unspecified; D72.819 Decreased white blood cell count, unspecified; Z88.0 Allergy status to penicillin
CPT/HCPCS: 36415; 36430; 86850; 86900; 86901; 86923; J7050; P9016

== ENCOUNTER 2025-08-01 07:20 | Day surgery (SDC) | payer MEDICARE, OTHER ==
[2025-07-30 11:36] LABS: Hematocrit 23.2 % (37.0-53.0); Hemoglobin 7.2 g/dL (13.5-17.5); Mean Corpuscular HGB Conc 31.0 g/dL (31.5-36.5); Mean Corpuscular Volume 98 fL (80-100); NRBC ABSOLUTE 0.08 K/mm3 (0.00-0.02); NRBC Auto 0.5 /100 WBC (0.0-0.2); Platelet Count 88 K/mm3 (150-400); RDW Coefficient Variation 22.2 % (11.7-14.2); RDW Standard Deviation 75.1 fL (35.1-46.3)
[2025-07-30 11:38] LABS: Alanine Aminotransfer (ALT/SGP 24.0 U/L (12-78); Albumin, Blood 3.6 g/dL (3.4-5.0); Albumin/Globulin Ratio 1.1 (0.8-1.8); Anion Gap 8.0 mmol/L (3-11); Aspartate Aminotrans (AST/SGOT 34.0 U/L (12-37); Bilirubin, Total 1.2 mg/dL (0.1-1.0); Blood Urea Nitrogen 19.0 mg/dL (8-24); CO2, Blood 24.0 mmol/L (21-32); Calcium, Blood 8.4 mg/dL (8.5-10.1); Chloride, Blood 110.0 mmol/L (98-108); Creatinine, Blood 1.26 mg/dL (0.60-1.20); Globulin, Blood 3.2 g/dL (2.2-4.0); Glucose, Blood 91.0 mg/dL (70-99); Potassium, Blood 5.0 mmol/L (3.5-5.5); Sodium, Blood 137.0 mmol/L (136-145); Total Protein, Blood 6.8 g/dL (6.4-8.2)
[2025-07-30 13:26] LABS: BAND PERCENT MAN 16 % (0-8); BASOPHILS ABSOLUTE MAN 0.30 K/mm3 (0.00-0.23); BASOPHILS PERCENT MAN 2 % (0-2); EOSINOPHILS ABSOLUTE MAN 0.00 K/mm3 (0.00-0.68); EOSINOPHILS PERCENT MAN 0 % (0-6); LYMPHOCYTES ABSOLUTE MAN 2.60 K/mm3 (0.84-5.20); LYMPHOCYTES PERCENT MAN 17 % (21-46); METAMYELOCYTE ABSOLUTE MAN 0.92 K/mm3 (0.00-0.00); METAMYELOCYTE PERCENT MAN 6 % (0-0); MONOCYTES ABSOLUTE MAN 0.46 K/mm3 (0.16-1.47); MONOCYTES PERCENT MAN 3 % (4-13); MYELOCYTE ABSOLUTE MAN 0.46 K/mm3 (0.00-0.00); MYELOCYTE PERCENT MAN 3 % (0-0); NEUTROPHILS ABSOLUTE MAN 10.59 K/mm3 (1.96-9.15); SEG NEUTROPHILS PERCENT MAN 53 % (41-73)
[~2025-08-01 07:20] MED LIST changes: +METOPROLOL SUCC25 MG PO; +NS 250 ML IV SCH; +TAMSULOSIN HCL0.4 M1 PO
[2025-08-01] MEDS ORDERED: NS 250 ML IV SCH (07:40)
[2025-08-01 13:30] VITALS: BP 139/63
[2025-08-01 13:56] VITALS: BP 123/64
[2025-08-01 14:56] VITALS: BP 115/68
[2025-08-01 15:23] VITALS: BP 135/95
[2025-08-01 15:45] VITALS: BP 121/73
[2025-08-01 16:44] VITALS: BP 121/78
== END 2025-08-01 17:16 | disposition home or self-care (01) ==
LOC: ATC 07:20 → LAB FUT 05-09 14:00 → ATC 05-09 14:00 → EDSTATUS 05-09 14:00
PROVIDERS: Internal Medicine Hematology & Oncology
DX: C61 Malignant neoplasm of prostate (principal); D63.0 Anemia in neoplastic disease; D47.1 Chronic myeloproliferative disease; D69.6 Thrombocytopenia, unspecified; D72.819 Decreased white blood cell count, unspecified; R53.0 Neoplastic (malignant) related fatigue; K76.0 Fatty (change of) liver, not elsewhere classified; R16.1 Splenomegaly, not elsewhere classified; Z88.0 Allergy status to penicillin
CPT/HCPCS: 36415; 36430; 80053; 85025; 86850; 86900; 86901; 86923; J7050; P9016